=== PATIENT | female | born 1970 | race Caucasian/White ===

== ENCOUNTER 2023-10-06 17:55 | Inpatient (IN) ==
--- OUTSIDE RECORDS SUMMARY | 2023-10-06 18:01 | External Medical Summary | Summary of Care ---
Author Name Unknown Organization [facility] Address [address] [address] Care Team Providers Care Cloud Subject Matter Expert Name Role Phone Emiliano Marks MD Primary Care Provider [phone] Reason for Visit * Reason Comments Surgical Followup S/P SBO 07/01/23. Wet to dry dressings. Encounter Details Date Type Department Care Team (Late st Contact Info) Description 08/14/2023 2:20 PM EST Office Visit [facility] [address] [phone] Nirmala Olmos PA-C [address] [id number] Small bowel obstruction (HCC) (Primary Dx); S/P exploratory laparotomy Allergies Active Allergy Reactions Criticality Noted Date Comments Amoxicillin Swelling 04/27/2008 Throat swells/hives Codeine Hives 01/13/2013 Subsys Other 09/01/2017 Makes her feel like she is going nuts Penicillins 11/15/2007 Tylenol Unknown Reaction 11/24/2019 Cause liver count to elevate documented as of this encounter (statuses as of 08/14/2023) Medications Medication Sig Dispensed Refills Start Date End Date Status aspirin (ECOTRIN) 81 MG Oral Tab EC Take 81 mg by mouth DAILY. Active esomeprazole magnesium (NEXIUM) 40 MG Oral CAPSULE DELAYED RELEASE Take 40 mg by mouth DAILY. 90 Cap 3 12/13/2017 Active Additional Information Patient taking differently:40 mg OralBID, Reported on 07/21/2019 albuterol HFA (VENTOLIN) 108 (90 Base) MCG/ACT Inhalation Aero Soln Take 2 Puffs by inhalation EVERY FOUR HOURS NEEDED (prn). 3 Inhaler 3 02/04/2018 Active atorvastatin (LIPITOR) 40 MG Oral Tab Take 1 Tab by mouth DAILY. 30 Tab 3 05/20/2018 Active Tiotropium [place] Monohydrate (SPIRIVA RESPIMAT) 2.5 MCG/ACT Inhalation Aero Soln Take 2 Puffs by inhalation DAILY. 1 Inhaler 5 07/22/2018 Active levothyroxine (SYNTHROID) 125 MCG Oral Tab Take 1 Tab by mouth BEFORE BREAKFAST. 30 Tab 12 09/09/2018 Active Budesonide-Formote rol Fumarate (SYMBICORT IN) Take by inhalation. Active cholestyramine (QUESTRAN) 4 g Oral Pack Take 4 g by mouth TWICE DAILY. 02/16/2019 Active loperamide (IMODIUM) 2 MG Oral Cap Take 2 Caps by mouth THREE TIMES DAILY. 180 Cap 09/11/2019 Active levothyroxine (SYNTHROID) 137 MCG Oral Tab Take 137 mcg by mouth BEFORE BREAKFAST. Take on opposite days of the 125mcg Active naproxen (NAPROSYN) 500 MG Oral Tab Take 1 Tab by mouth TWICE DAILY. 180 Tab 3 11/10/2019 Active metoprolol succinate (TOPROL XL) 50 MG Oral TABLET SR 24 HR Take 1 Tab by mouth DAILY. 90 Tab 3 11/10/2019 Active ALPRAZolam (XANAX) 1 MG Oral Tab TAKE 1 TABLET BY MOUTH ONCE DAILY NEEDED FOR ANXIETY 30 Tab 12/22/2019 Active lidocaine Urethral/Mucosal (GLYDO) 2 % Apply externally Prefilled Syringe Apply a thin layer into wound during dressing changes 30 mL 07/10/2023 Active tramadol (ULTRAM) 50 MG Oral Tab Take 1 Tablet by mouth EVERY SIX HOURS NEEDED (wound vac changes). Max Daily Amount: 200 mg. 8 Tablet 07/22/2023 Active oxyCODONE (OXY-IR,OXY-FAST) 5 MG Oral Tab Take 1 Tablet by mouth EVERY SIX HOURS NEEDED (pain not controlled with other meds) for up to 10 doses. Max Daily Amount: 20 mg. 10 Tablet 07/22/2023 Active gabapentin (NEURONTIN) 100 MG Oral Cap Take 1 Capsule by mouth THREE TIMES DAILY. 90 Each 07/31/2023 Active methocarbamol (ROBAXIN) 500 MG Oral Tab Take 1 Tablet by mouth FOUR TIMES DAILY. 60 Tablet 07/31/2023 Active Gauze Pads & Dressings (GAUZE DRESSING) 4"X4" Does not apply Pads 1 Application TWICE DAILY. For wet to dry dressing change 48 Each 1 07/31/2023 Active Sodium Chloride (NORMAL SALINE) 0.9 % Injection Solution 20 mL by Topical route TWICE DAILY. For Wet to dry dressing changes 1000 mL 07/31/2023 Active Adhesive Tape (CLOTH ADHESIVE SURG 2"X10YD) Does not apply Tape 1 Application TWICE DAILY. For wet to dry dressing 2 Each 1 07/31/2023 Active Gauze Pads & Dressings (ABDOMINAL PAD) 8"X10" Does not apply Pads 1 Application TWICE DAILY. For wet to dry dressing 60 Each 1 07/31/2023 Active doxycycline (VIBRAMYCIN) 100 MG Oral Tab Take 1 Tablet by mouth TWICE DAILY for 10 days. 20 Tablet 08/08/2023 08/18/2023 Active documented as of this encounter (statuses as of 08/14/2023) Active Problems Problem Noted Date Diagnosed Date S/P exploratory laparotomy 07/08/2023 Acute hypoxic respiratory failure 07/08/2023 Ventral hernia without obstruction or gangrene 0 11/10/2019 Regular astigmatism of right eye 02/19/2019 Mixed hyperlipidemia 07/22/2018 Generalized abdominal pain 03/08/2018 H/O ischemic bowel disease 10/22/2017 Overview: Ischemic Bowel 2012 (hypercoagulable state) with laparotomy/ileostomy at [facility] 11/2012. Attempted reversal in [place] 04/12 that failed - ileostomy recreated. Cervical disc disease 10/22/2017 Overview: C5,6,7 on MRI in [place] 2010 Chronic bilateral low back pain without sciatica 10/22/2017 Small bowel obstruction 09/11/2017 Reactive depression 09/04/2017 Essential hypertension 09/04/2017 CAD (coronary artery disease) 09/04/2017 Moderate persistent asthma 09/04/2017 Presence of drug coated stent in right coronary artery 07/02/2012 Overview: Promus stent mid RCA 2012 Other and unspecified ovarian cyst 04/30/2008 Hypothyroidism 11/15/2007 Overview: S/P DURÁN for hyperthyroidism documented as of this encounter (statuses as of 08/14/2023) Resolved Problems Problem Noted Date Diagnosed Date Resolved Date Open abdominal wall wound 10/30/2018 Surgical wound, non healing 10/30/2018 01/20/2019 LFT elevation 12/24/2017 11/10/2019 Ileostomy prolapse 11/15/2017 0 Parastomal hernia without ob struction or gangrene 09/18/2017 07/21/2019 Overview: Multiple adhesions and SBO in the past. 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 Alcohol Use Standard Drinks/Week Comments No 0 (1 standard drink = 0.6 oz pur e alcohol) Food Insecurity Answer Date Recorded I want help getting food for myself/my family or applying for assistance. No 06/30/2023 Transportation Needs Answer Date Record ed In the last 6 months, I or m y child had to go without health care because we didn't have a way to get there. No 2022 Inadequate Housing Answer Date Recorded I worry my home is unhealthy or I might become h omeless. No 06/30/2023 Utilities Answer Date Recorded I have received a disconnect ion notice, or have trouble paying my utility bills (gas, electric, phone) No 06/30/2023 Sex and Gender Information Value Date Recorded Sex Assigned at Not on file Gender Identity Not on file Sexual Orientation Not on file COVID-19 Exposure Response Date Recorded In the last 10 days, have wilda u been in contact with someone who was confirmed or suspected to have Coronavirus/COVID-19? No / Unsure 08/14/2023 1:52 PM EST documented as of this encounter Last Filed Vital Signs Vital Sign Reading Time Taken Comments Blood Pressure 142/84 08/14/2023 2:10 PM EST Pulse 115 08/14/2023 2:10 PM EST Temperature 36.9 C (98.4 F) 08/14/2023 2:10 PM ES T Respiratory Rate 18 08/14/2023 2:10 PM EST Oxygen Saturation 98% 08/14/2023 2:10 PM EST Inhaled Oxygen Concentration - - Weight - - Height - - Body Mass Index - - documented in this encounter Patient Instructions * Patient Instructions* Nirmala Olmos PA-C - 08/14/2023 3:00 PM EST Continue good nutrition and hydration for healing. Continue the methocarbamol (robaxin) as needed. You can stop the neurontin (gabapentin), as it has not been helping and made you feel tired. Medihoney dressing once daily until fully healed. Follow up as needed. Call with questions or concerns. Trauma/General Surgery Clinic: [phone] documented in this encounter Progress Notes * Nirmala Olmos PA-C - 08/14/2023 3:00 PM EST Images from the original note were not included. PATIENT: Vonda Cherry : 1970 DATE OF SERVICE: 08/14/23 REFERRING PRACTITIONER: Huy PRIMARY CARE PROVIDER: Emiliano Marks Admission date: 06/30/2023 Discharge date: 07/09/2023 Admitting Physician: Radha Patino MD Indication for Admission: Small bowel obstruction (HCC) Principal Diagnosis: Small bowel obstruction (HCC) Other medical problems managed in the hospital: Medical Problems Hospital Problem list Noted Hypothyroidism 11/15/2007 Reactive depression 09/04/2017 Presence of drug coated stent in right coronary artery 07/02/2012 Essential hypertension 09/04/2017 CAD (coronary artery disease) 09/04/2017 Moderate persistent asthma 09/04/2017 * (Principal) Small bowel obstruction (HCC) 09/11/2017 H/O ischemic bowel disease 10/22/2017 Mixed hyperlipidemia 07/22/2018 S/P exploratory laparotomy 07/08/2023 Acute hypoxic respiratory failure (HCC) 07/08/2023 Non-Hospital Problem list Noted Other and unspecified ovarian cyst 04/30/2008 Cervical disc disease 10/22/2017 Chronic bilateral low back pain without sciatica 10/22/2017 Generalized abdominal pain 03/08/2018 Regular astigmatism of right eye 02/19/2019 Ventral hernia without obstruction or gangrene 11/10/2019 Discharged Condition: good Discharge Location: Home with Subjective HISTORY OF PRESENT ILLNESS: Vonda Cherry returns today for follow up of exploratory laparotomy with extensive lysis of adhesions and AbThera placement on 07/01/23 for SBO in the setting of previous subtotal colectomy, ileostomy, and ileostomy takedown and ileorectal anastamosis likely secondary to stricture at ileorectal anastomosis. She returned to the OR on 07/04/23 for abdominal washout and primary fascial closure. She wasextubated and NGT was removed and patient eventually tolerated an oral diet. She was recommended STR, but preferred home discharge with for wound vac care, which was removed for this appointment today. She reports that she continues to have sharp pains occasionally across the sides of the abdomen and up from the pelvis that are somewhat random. Pain gradually improving overall. No improvement with gabapentin - made her "loopy" and groggy. At this time, patient denies N/V/D, CP, SOB, Difficulty breathing or other complications. Patient having normal GI/ functioning. Patient tolerating regular PO intake. Patient not using pain medication currently. Patient denies any redness, irritation or drainage from wounds. The patient is doing well and is currently having no pain or problems. Objective PHYSICAL EXAMINATION: BP 142/84 Pulse 115 Temp 98.4 F (36.9 C) Resp 18 SpO2 98% Constitutional - AAOx3 Cardiac - RRR Respiratory - no acute distress Abdominal - Soft, tenderness around incision, nondistended. Wet to dry dressing removed. No area ofsignificant tunneling. Wound nearly to skin level. Medihoney and dry dressing placed. 2 areas wherehealing inhibited by retention suture extruding from wound - these were clipped superficially. On physical exam, the incision is healing well, free of signs and symptoms of infection. There is no induration and bruising. There are not any sign(s) of infection. IMPRESSION: ICD-10-CM 1. Small bowel obstruction (HCC) K56.609 2. S/P exploratory laparotomy Z98.890 No orders of the defined types were placed in this encounter. Plan PLAN: I have reviewed the provider's instructions with the patient, answering all questions to his/her satisfaction. Patient Instructions Continue good nutrition and hydration for healing. Continue the methocarbamol (robaxin) as needed. You can stop the neurontin (gabapentin), as it has not been helping and made you feel tired. Medihoney dressing once daily until fully healed. Follow up as needed. Call with questions or concerns. Trauma/General Surgery Clinic: [phone] Author: Nirmala Olmos PA-C 08/14/23 17:00 documented in this encounter Plan of Treatment Health Maintenance Due Date Last Done Comments CT Colonography 1970 Cologuard 1970 FIT/FOBT 1970 MEDICARE ANNUAL WELLNESS VISIT 1970 SDOH SCREENING 1970 PNEUMOCOCCAL 0-64 YRS (2 of 2 - PCV) 10/22/2018 10/22/2017 ZOSTER IMMUNIZATION SERIES (1 of 2) 02/24/2020 MAMMOGRAM (SCREENING) 03/13/2020 03/13/2019 , 03/04/2018, 12/06/2017, Additional history exists LIPID DISORDER Diagnostic 03/18/20202018, 06/26/2018, 02/18/2018, Additional history exists INFLUENZA VACCINE (#1) 2023 09/09/2018, 2017 eGFR (BMP/CMP) 07/07/2024 07/07/2023, 11/2023, 07/05/2023, Additional history exists Colonoscopy 09/07/2027 09/06/2017, 03/2018, 05/20/2008 DTaP/Tdap/Td Vaccines (2 - Tdap) 11/09/2029 11/10/2019 Colorectal Cancer Screening 07/03/2033 Sigmoidoscopy 07/03/2033 07/03/2023, 11/29, 04/09/2018 HIV SCREENING Completed 11/14/2017 HEPATITIS A IMMUNIZATION SERIES Aged Out No longer eligible based on patient's age to complete this topic HPV IMMUNIZATION SERIES Aged Out No l onger eligible based on patient's age to complete this topic MENINGOCOCCAL VACCINE IMM Aged Out No longer eligible based on patient's age to complete this topic RSV IMMUNIZATION <20 MONTHS Aged Out No longer eligible based on patient's age to complete this topic documented as of this encounter Goals Goal Patient Goal Type Associated Problems Recent Progress Patient-Stated? Author Blood Pressure < 140/90 Blood Pressure 142/84(08/14 2:10 PM EST) No Emiliano Marks MD Note: This is an individualized treatment (blood pressure) goal for Vonda Cherry: Displayed above (on the left) is your goal for blood pressure control. Your most recent blood pressure is also shown above, on the right. You should try to achieve blood pressures that are lower than your goal listed above (on the left). Depression screen (PHQ-9) total score < 5 Depression 12( 9 1:33 PM EDT) No Emiliano Marks MD Note: This is an individualized treatment (depression) goal for Vonda Cherry: Displayed above is your goal for a depression screening (PHQ-9) score that would indicate good control of your depression. Work with your Shop Director General No Emiliano Marks MD Note: This is an individualized treatment (frequent ED use) goal for Vonda Cherry: Please work with your Shop Director, who will assist you in meeting your goals of care. Weight loss vs. 18 mo max (lbs) >= 10 Lifestyle 0(07/01/2023 9:13 AM EST) Emiliano Cortes MD Note: This is an individualized lifestyle goal for Vonda Cherry: Your body mass index (BMI) is more than 30. You should lose weight. A reasonable starting goal is to lose 10 pounds. Displayed above is how many pounds you have lost thus far towards your 10 pound weight loss goal. Keep a regular sleep schedule Emiliano Dan MD Note: This is an individualized lifestyle goal for Vonda Cherry: Please maintain a regular sleep schedule. This may help with some symptoms of depression. Regular appointments with primary care provider (PCP) Emiliano Dan MD Note: This is an individualized lifestyle goal for Vonda Cherry: Please schedule regular visits with your primary care provider (PCP). Care provided in your PCP's office can help reduce your need for additional trips to the Emergency Room. Take all prescribed medications as directed Self-managemen t Emiliano Cortes MD Note: This is an individualized self-management goal for Vonda Cherry: Please take all prescribed medications as directed. 1. Do not skip doses. If you cannot afford your medications, talk with your doctor. 2. Use a pill reminder system such as a pill box if needed. Your pharmacist can help you with this. 3. Contact your Pharmacy 5 days before your medication runs out. If you cannot take your medications for any reasons, talk with your doctor. 4. Please bring all of your medication bottles and inhalers (or a list of all your medications/inhalers) with you to every visit. Potential barriers to meeting all of your care plan goals will continue to be addressed on an ongoing basis. documented as of this encounter Medical Devices Implanted Type Area Physical Therapy Asst Device Identifier Shelf Expiration Date Model / Serial / Lot Taxus-07/02/2012 Implanted: [id number] (Quantity not on file) [employer] Description:MRI CONDITIONAL 1.5 or 3.0T 2.0 W/KG 700G/CM <16T/CM documented as of this encounter Visit Diagnoses Diagnosis Small bowel obstruction (HCC)- Primary Unspecified intestinal obstruction S/P exploratory laparotomy Other postprocedural status documented in this encounter Advance Directives Latest Code Status on File Code Status Date Activated Date Inactivated Comments Full Code 07/01/2023 1:05 AM Question Answer Comments Does the patient have decisi on making capacity? Yes Order was discussed with: Patient I discussed all options and patient/surrogate requested and agreed to: Full Code Code Status History Code Status Date Activated Date Inactivated Comments Full Code 10/27/2017 7:25 PM 10/30/2017 7:38 PM Does p atient have decision making capacity? yes Order discussed with: Patient I discussed all options and patient/surrogate requested and agreed to: Full Code Care Teams Cloud Subject Matter Expert Relationship Specialty Start Date End Date Emiliano Marks MD [address] [id number] PCP - General FAMILY PRACTICE 10/22/17 documented as of this encounter
--- OUTSIDE RECORDS SUMMARY | 2023-10-06 18:01 | External Medical Summary | Summary of Care ---
Author Name Unknown Organization [facility] Address [address] [address] Care Team Providers Care Spice Mixer Name Role Phone Emiliano Marks MD Primary Care Provider [phone] Reason for Visit * Reason Comments Surgical Followup .10.22 re-look lapar otomy, abdominal washout, fascial closure Encounter Details Date Type Department Care Team (Late st Contact Info) Description 07/31/2023 3:00 PM EST Office Visit [facility] [address] [phone] Nirmala Olmos PAAdama [address] [id number] Small bowel obstruction (HCC) (Primary Dx); S/P exploratory laparotomy Allergies Active Allergy Reactions Criticality Noted Date Comments Amoxicillin Swelling 04/27/2008 Throat swells/hives Codeine Hives 01/13/2013 Subsys Other 09/01/2017 Makes her feel like she is going nuts Penicillins 11/15/2007 Tylenol Unknown Reaction 11/24/2019 Cause liver count to elevate documented as of this encounter (statuses as of 07/31/2023) Medications Medication Sig Dispensed Refills Start Date [...] DAILY. 30 Tab 3 05/20/2018 Active Tiotropium [place] Monohydrate (SPIRIVA RESPIMAT) 2.5 MCG/ACT Inhalation Aero [...] NEEDED FOR ANXIETY 30 Tab 12/22/2019 Active losartan (COZAAR) 50 MG Oral Tab Take 1 Tablet by mouth DAILY for 30 days. 30 Each 07/10/2023 08/09/2023 Active lidocaine Urethral/Mucosal (GLYDO) 2 % Apply [...] dry dressing 60 Each 1 07/31/2023 Active documented as of this encounter (statuses as of 07/31/2023) Active Problems Problem Noted Date Diagnosed Date S/P exploratory laparotomy 07/08/2023 Acute hypoxic respiratory failure 07/08/2023 Ventral hernia without obstruction or gangrene 0 11/10/2019 Regular astigmatism of right eye 02/19/2019 Mixed hyperlipidemia 07/22/2018 Generalized abdominal pain 03/08/2018 H/O ischemic bowel disease 10/22/2017 Overview: Ischemic Bowel 2012 (hypercoagulable state) with laparotomy/ileostomy at [facility] 11/2012. Attempted reversal in [place] 04/12 that failed - ileostomy recreated. Cervical disc disease 10/22/2017 Overview: C5,6,7 on MRI in [place] 2010 Chronic bilateral low back pain without [...] as of this encounter (statuses as of 07/31/2023) Resolved Problems Problem Noted Date Diagnosed Date Resolved Date Open abdominal wall wound 10/30/2018 Surgical wound, non healing 10/30/2018 01/20/2019 LFT elevation 12/24/2017 11/10/2019 Ileostomy prolapse 11/15/2017 0 Parastomal hernia without ob struction or gangrene 09/18/2017 07/21/2019 Overview: Multiple adhesions and SBO in the past. Dr. Norton recommends continued ostomy care home current use of ant icoagulant therapy 09/17/2017 09/09/2018 Overview: Warfarin therapy was d/c upon discharge from [facility], 08/2018. 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 Alcohol Use Standard Drinks/Week Comments No 0 [...] In the last 10 days, have wilda torres been in contact with someone who was confirmed or suspected to have Coronavirus/COVID-19? No / Unsure 07/31/2023 2:49 PM EST documented as of this encounter Last Filed Vital Signs Vital Sign Reading Time Taken Comments Blood Pressure - - Pulse 116 07/31/2023 2:59 PM EST Temperature 36.5 C (97.7 F) 07/31/2023 2:59 PM ES T Respiratory Rate - - Oxygen Saturation 93% 07/31/2023 2:59 PM EST Inhaled Oxygen Concentration - - Weight - - Height - - Body Mass Index - - documented in this encounter Patient Instructions * Patient Instructions* Nirmala Olmos PA-C - 07/31/2023 3:00 PM EST Continue with lifting restriction - no more than 10 - 15 pounds for a total of 6 weeks, then gradually progress to normal. Continue good nutrition and hydration for healing. Take the methocarbamol (robaxin) muscle relaxer 3- 4 times per day consistently. This dose can be increased if necessary. Start on neurontin (gabapentin) three times daily 100mg capsule. Continue wet to dry dressings twice daily. I will send supplies to the pharmacy. Follow up in 2 weeks. Call with questions or concerns. Trauma/[facility] Surgery Clinic: [phone] documented in this encounter Progress Notes * Nirmala Olmos PA-C - 07/31/2023 3:00 PM EST PATIENT: Vonda Cherry : 1970 DATE OF SERVICE: 07/31/23 REFERRING PRACTITIONER: Huy PRIMARY CARE PROVIDER: Emiliano [...] of the abdomen and up from the pelvis, worse with movement. She has been taking advil, muscle relaxer (robaxin) only at bedtime and she took her last oxycodone just prior to coming today. Reports burning pain around the wound as well. At this time, patient denies N/V/D, CP, SOB, Difficulty breathing or other complications. Patient having normal GI/ functioning. Patient tolerating regular PO intake. Patient not using pain medication currently. Patient denies any redness, irritation or drainage from wounds. The patient is doing well and is currently having no pain or problems. Objective PHYSICAL EXAMINATION: Pulse 116 Temp 97.7 F (36.5 C) SpO2 93% Constitutional - AAOx3 Cardiac - RRR Respiratory - no acute distress Abdominal - Soft, tenderness around incision, nondistended. Wet to dry dressing removed. No area ofsignificant tunneling. Wound nearly to skin level. Wet to dry dressing replaced. On physical exam, the incision is healing well, free of signs and symptoms of infection. There is no induration and bruising. There are not any sign(s) of infection. No scans are attached to the encounter. IMPRESSION: ICD-10-CM 1. Small bowel obstruction (HCC) K56.609 2. S/P exploratory laparotomy Z98.890 Orders Placed This Encounter gabapentin (NEURONTIN) 100 MG Oral Cap methocarbamol (ROBAXIN) 500 MG Oral Tab Gauze Pads & Dressings (GAUZE DRESSING) 4"X4" Does not apply Pads Sodium Chloride (NORMAL SALINE) 0.9 % Injection Solution Adhesive Tape (CLOTH ADHESIVE SURG 2"X10YD) Does not apply Tape Gauze Pads & Dressings (ABDOMINAL PAD) 8"X10" Does not apply Pads Plan PLAN: I have reviewed the provider's instructions with the patient, answering all questions to his/her satisfaction. Patient Instructions Continue with lifting restriction - no more than 10 - 15 pounds for a total of 6 weeks, then gradually progress to normal. Continue good nutrition and hydration for healing. Take the methocarbamol (robaxin) muscle relaxer 3- 4 times per day consistently. This dose can be increased if necessary. Start on neurontin (gabapentin) three times daily 100mg capsule. Continue wet to dry dressings twice daily. I will send supplies to the pharmacy. Follow up in 2 weeks. Call with questions or concerns. Trauma/General Surgery Clinic: [phone] Author: Nirmala Olmos PA-C 07/31/23 17:16 documented in this encounter Plan of Treatment Upcoming Encounters Date Type Department Care Team (Late st Contact Info) Description 08/14/2023 3:00 PM EST Office Visit [facility] [address] [place] [address] [address] [phone] Health Maintenance Due Date Last Done Comments [...] Author Blood Pressure < 140/90 Blood Pressure 152/87(07/09 3:45 PM EST) No Emiliano Marks MD Note: [...] 5 Depression 12( 9 1:33 PM EDT) mEiliano Cortes MD Note: This is an individualized treatment (depression) goal for Vonda Cherry: Displayed above is your goal for a depression screening (PHQ-9) score that would indicate good control of your depression. Work with your Inside Barrel Polisher General Emiliano Cortes MD Note: This is an individualized treatment (frequent ED use) goal for Vonda Cherry: Please work with your Inside Barrel Polisher, who will assist you in meeting your [...] this encounter Medical Devices Implanted Type Area Dimensional Inspector Device Identifier Shelf Expiration Date Model / Serial / Lot [employer]-07/02/2012 Implanted: [id number] (Quantity not on file) Fly Media Description:MRI CONDITIONAL 1.5 or 3.0T 2.0 W/KG [...] and agreed to: Full Code Care Teams Spice Mixer Relationship Specialty Start Date End Date Emiliano Marks MD [address] [id number] PCP - General FAMILY PRACTICE 10/22/17 documented as of this encounter
--- NOTE | 2023-10-06 18:13 | Emergency Department Note ---
Impression & Plan Post-operative pain, Abscess of liver, Abdominal pain ED Provider Note NAME: ALICIA CH AGE: 53 SEX: F : 1970 ARRIVES VIA: Walk-In INFORMANT: Patient, ED PROVIDER(S): Fran Leo DO CHIEF COMPLAINT: Abdominal pain HPI: The patient is a 53-year-old female who has a history of abdominal surgery because of a bowel obstruction at the beginning of the year. She had surgery at a hospital in [place], [place]. The patient states that she is been trying to call the surgeon over the course the last few weeks she has been noticing abdominal pain which has been worsening over the course the last few weeks. She called the surgeon multiple times. She was told to continue to monitor her symptoms but ultimately was told to come to the emergency department for further evaluation as well as a workup. The patient denies having any fever. The patient denies having any leg swelling or pain. She denies having any chest pain or difficulty breathing. ROS: See above HPI for pertinent positives & negatives. A total of 10 systems reviewed and were otherwise negative. PAST MEDICAL HISTORY: See Below PAST SURGICAL HISTORY: See Below FAMILY HISTORY: See Below SOCIAL HISTORY: See Below HOME MEDICATIONS: See Below ALLERGIES: See Below VITALS: See Below PHYSICAL EXAMINATION: GENERAL: The patient is awake and alert. She is very anxious and appears to be uncomfortable. EYES: The conjunctivae are clear. The pupils are round and reactive. EARS, NOSE, MOUTH AND THROAT: The nose is without any evidence of any deformity. NECK: The neck is nontender and supple. RESPIRATORY: Normal respiratory effort is noted there is no evidence of wheezing rhonchi or rales CARDIOVASCULAR: Regular rate and rhythm noted there no murmurs rubs or gallops normal S1 normal S2. GASTROINTESTINAL: The abdomen is distended and diffusely tender. There is diffuse guarding. MUSCULOSKELETAL/EXTREMITIES: There is no evidence of gross deformity full range of motion is noted in the hips and shoulders. SKIN: There is no obvious evidence of any rash. There are no petechiae, pallor or cyanosis noted. NEUROLOGIC: Patient is awake alert and oriented x3 MEDICAL DECISION MAKING: The patient is a 53-year-old female who presented to the emergency department for an evaluation of abdominal pain. The patient started having abdominal pain over the course the last few weeks. She is 4 months status post lysis of adhesions for bowel obstruction. I discussed patient's laboratory and radiographic studies with her. She was in significant pain and was treated with pain medication in the emergency department. On reevaluation she was somewhat improved. Given her CT report she was started on empiric IV antibiotics. I discussed her condition with the on-call [facility] surgeon as well as the on-call [facility] hospitalist. The patient was felt to be a good candidate for medical management at this time. She was feeling much better on reevaluation. Laboratory studies were reassuring. Triage Nursing notes reviewed. Prior medical records reviewed Vital Signs: reviewed and remarkable for no significant abnormalities Differential diagnosis: Differential diagnosis in this patient could include bowel obstruction, bleeding, postoperative infection, injury to adjacent structures, and other differential diagnoses were considered. ER treatment provided: See below Diagnostics interpreted by me: ECG: none Cardiac Monitoring: An order was placed for continuous cardiac monitoring. The monitor shows a rate of 79 bpm with sinus rhythm. Laboratory studies: As stated above and show below. Imaging studies: See below. Radiographic imaging was reviewed by myself Consultation(s): I discussed this case with Dr. Tejeda who is on-call for general surgery. I discussed this case with Dr. Levi who is on-call for the [facility] hospitalist group. Past Med/Surg History Medical History Hypertension History of colon polyps History of renal failure Kidney cysts Liver cyst Crohn's disease ? - UNDETERMINED History of diverticulitis Acid reflux Degenerative disc disease, lumbar Bulging discs "SLIPPED DISCS C 5, 6 &7" - FULL ROM Depression Anxiety Arthritis History of thyroid disease "OVERACTIVE" 1995 - HX RADIATION History of blood clots 2012, PT HAD BLOOD CLOT FROM PT HEART DOWN TO BOWELS. MEDICALLY INDUCED COMA/[facility] History of COVID-19 PER PT - PROBABLE - HAD PHONE EVAL WITH PRACTITIONER - NO TEST FOR MAY 2020 COPD (chronic obstructive pulmonary disease) Asthma CONTROLLED History of anesthesia reaction WHEN WAKING UP - IF SOMETHING IS ON FACE WILL PULL AT IT - HX PULLING OUT TUBES Mini stroke 2012 WHILE IN MEDICALLY INDUCED COMA Acute myocardial infarction 2012 MILD VT WHILE IN MEDICALLY INDUCED COMA Tachycardia Surgical History H/O exploratory laparotomy 07/2023 @[facility] with lysis of adhesions. S/P scar revision (~10/18/20) abdominal scar revision with umbilicoplasty - Dr. Stewart History of endoscopy History of colonoscopy History of surgical procedure Pt states having 16 surgeries since 2012 due to a blood clot that dropped from pt's heart to bowels. SURGERIES INCLUDE ILEOSTOMY, ATTEMPTED REVERSAL, AND REVERSAL History of cholecystectomy History of hysterectomy History of removal of ovarian cyst History of appendectomy Stented coronary artery TACHYCARDIA...07/2012 stent placed in right artery of heart , ANGIOPLASTY 2 PLACES Family History Mother Breast cancer Grandmother (Paternal) Breast cancer Cancer breast cancer, unknown cancer, and brain cancer Grandmother (Maternal) Breast cancer Family history of diabetes mellitus Aunt Cancer Grandfather (Maternal) Myocardial infarction Denies family history of Ovarian cancer Prostate cancer Colorectal cancer Social History Smoking Status: Current every day smoker Tobacco Type: Cigarettes packs per day: 0.5; Do You Dip or Chew Tobacco: No; Hx Alcohol Use: No Hx Substance Use: No Preferred Language: Austrian Communication Ability: Effective Filling Operator Required: No Beliefs That Will Affect Care: None marital status: Single Current Living Situation: Alone current occupational status: disabled How many Children do You have: 3 Feels Safe at Home: Yes caffeine: Yes Dental Care, Regularly: Yes Physical Activity Frequency: Daily Physical Activity Frequency Comment: housewor and walking the dogs daily Seatbelt Use: always Sunscreen Use: Yes Assistive Devices: Denture - Upper and Denture - Lower Allergies Allergies Allergy/AdvReac Type Severity Reaction Status Date / Time amoxicillin Allergy Severe HIVES, Verified 10/06/23 19:42 THROAT SWELLS Penicillins Allergy Severe Hives, Verified 10/06/23 19:42 throat swells shit acetaminophen [From Tylenol] AdvReac Intermediate N/V, Verified 10/06/23 19:42 "MAKES MY LIVER COUNT GO UP" fentanyl AdvReac Intermediate WITH HIGH Verified 10/06/23 19:42 DOSES - Hallucinations codeine AdvReac Mild Nausea Verified 10/06/23 19:42 Home Meds Home Medications Medication Instructions Recorded Confirmed potassium gluconate 500 mg (83 mg) 0 mg PO DAILY 10/06/23 10/06/23 tablet Previous Rx's Medication Instructions Recorded albuterol sulfate 90 mcg/actuation 1 inh inhalation QID PRN ASTHMA, 05/08/23 aerosol inhaler (ProAir HFA) COPD #6.7 grams atorvastatin 40 mg tablet 40 mg PO QPM #90 tabs 05/08/23 budesonide-formoterol HFA 160 2 puff inhalation BID #3 Inhalers 05/08/23 mcg-4.5 mcg/actuation aerosol inhaler (Symbicort) escitalopram oxalate 10 mg tablet 10 mg PO DAILY #90 tabs 05/08/23 esomeprazole magnesium 40 mg 40 mg PO BID #180 caps 05/08/23 capsule,delayed release (Nexium) loperamide 2 mg capsule 2 mg PO Q6H PRN loose stool #270 05/08/23 caps metoprolol succinate 50 mg 50 mg PO QPM #90 tabs 05/08/23 tablet,extended release 24 hr nitroglycerin 0.4 mg sublingual 0.4 mg sublingual Q5M PRN chest 05/08/23 tablet pain #25 tabs tiotropium bromide 2.5 2 puff inhalation DAILY #3 Inhalers 05/08/23 mcg/actuation mist for inhalation (Spiriva Respimat) levothyroxine 150 mcg tablet 150 mcg PO DAILY #90 tabs 07/29/23 buspirone 15 mg tablet 15 mg PO Q6H PRN anxiety #90 tabs 08/22/23 Results & Data (ED) Vital Signs Vital Signs - 24 hr 10/06/23 17:56 10/06/23 18:27 10/06/23 18:28 Temperature 36.9 C Temperature Source Temporal Artery Scan Pulse Rate 95 H 80 Pulse Rate from SpO2 Sensor Respiratory Rate 18 19 Respiratory Effort / Characteristics Non-Labored Spontaneous Respiratory Depth Normal Respiratory Pattern Regular Blood Pressure 172/120 H 169/106 H Blood Pressure Mean 137 146 Blood Pressure Position Sitting Pulse Oximetry 100 Oxygen Delivery Method Room Air Sepsis Recent Fever Within 48 Hours No Sepsis New/Unexplained Change in Mental Status N/A Sepsis Action Taken by Nursing No Action Required 10/06/23 18:29 10/06/23 18:30 10/06/23 18:30 Temperature Temperature Source Pulse Rate 84 85 Pulse Rate from SpO2 Sensor Respiratory Rate 17 Respiratory Effort / Characteristics Respiratory Depth Respiratory Pattern Blood Pressure 166/105 H Blood Pressure Mean 122 Blood Pressure Position Pulse Oximetry Oxygen Delivery Method Sepsis Recent Fever Within 48 Hours Sepsis New/Unexplained Change in Mental Status Sepsis Action Taken by Nursing 10/06/23 18:38 10/06/23 18:38 10/06/23 18:40 Temperature Temperature Source Pulse Rate 80 78 Pulse Rate from SpO2 Sensor Respiratory Rate 18 18 Respiratory Effort / Characteristics Respiratory Depth Respiratory Pattern Blood Pressure 164/109 H Blood Pressure Mean 118 Blood Pressure Position Pulse Oximetry Oxygen Delivery Method Sepsis Recent Fever Within 48 Hours Sepsis New/Unexplained Change in Mental Status Sepsis Action Taken by Nursing 10/06/23 18:47 10/06/23 19:07 10/06/23 19:09 Temperature Temperature Source Pulse Rate 86 Pulse Rate from SpO2 Sensor 86 Respiratory Rate 21 Respiratory Effort / Characteristics Respiratory Depth Respiratory Pattern Blood Pressure 170/102 H Blood Pressure Mean 137 Blood Pressure Position Pulse Oximetry 95 Oxygen Delivery Method Room Air Sepsis Recent Fever Within 48 Hours Sepsis New/Unexplained Change in Mental Status Sepsis Action Taken by Nursing 10/06/23 19:09 10/06/23 19:10 10/06/23 19:20 Temperature Temperature Source Pulse Rate 87 85 85 Pulse Rate from SpO2 Sensor 87 85 85 Respiratory Rate 20 23 20 Respiratory Effort / Characteristics Respiratory Depth Respiratory Pattern Blood Pressure Blood Pressure Mean Blood Pressure Position Pulse Oximetry 96 97 97 Oxygen Delivery Method Sepsis Recent Fever Within 48 Hours Sepsis New/Unexplained Change in Mental Status Sepsis Action Taken by Nursing 10/06/23 19:30 10/06/23 19:30 10/06/23 19:40 Temperature Temperature Source Pulse Rate 83 86 Pulse Rate from SpO2 Sensor 83 86 Respiratory Rate 17 21 Respiratory Effort / Characteristics Respiratory Depth Respiratory Pattern Blood Pressure 131/93 Blood Pressure Mean 103 Blood Pressure Position Pulse Oximetry 96 96 Oxygen Delivery Method Sepsis Recent Fever Within 48 Hours Sepsis New/Unexplained Change in Mental Status Sepsis Action Taken by Nursing 10/06/23 19:50 10/06/23 20:00 10/06/23 20:00 Temperature Temperature Source Pulse Rate 82 81 Pulse Rate from SpO2 Sensor 83 81 Respiratory Rate 14 21 Respiratory Effort / Characteristics Respiratory Depth Respiratory Pattern Blood Pressure 143/84 H Blood Pressure Mean 110 Blood Pressure Position Pulse Oximetry 93 93 Oxygen Delivery Method Sepsis Recent Fever Within 48 Hours Sepsis New/Unexplained Change in Mental Status Sepsis Action Taken by Nursing 10/06/23 20:10 10/06/23 20:20 10/06/23 20:30 Temperature Temperature Source Pulse Rate 80 80 Pulse Rate from SpO2 Sensor 81 79 Respiratory Rate 19 20 Respiratory Effort / Characteristics Respiratory Depth Respiratory Pattern Blood Pressure 158/102 H Blood Pressure Mean 129 Blood Pressure Position Pulse Oximetry 94 94 Oxygen Delivery Method Sepsis Recent Fever Within 48 Hours Sepsis New/Unexplained Change in Mental Status Sepsis Action Taken by Nursing 10/06/23 20:30 10/06/23 20:40 10/06/23 20:53 Temperature Temperature Source Pulse Rate 84 80 82 Pulse Rate from SpO2 Sensor 84 80 81 Respiratory Rate 15 17 21 Respiratory Effort / Characteristics Respiratory Depth Respiratory Pattern Blood Pressure Blood Pressure Mean Blood Pressure Position Pulse Oximetry 95 96 96 Oxygen Delivery Method Sepsis Recent Fever Within 48 Hours Sepsis New/Unexplained Change in Mental Status Sepsis Action Taken by Nursing 10/06/23 21:00 10/06/23 21:00 10/06/23 21:10 Temperature Temperature Source Pulse Rate 81 82 Pulse Rate from SpO2 Sensor 82 83 Respiratory Rate 13 Respiratory Effort / Characteristics Respiratory Depth Respiratory Pattern Blood Pressure 168/108 H Blood Pressure Mean 131 Blood Pressure Position Pulse Oximetry 94 97 Oxygen Delivery Method Sepsis Recent Fever Within 48 Hours Sepsis New/Unexplained Change in Mental Status Sepsis Action Taken by Nursing 10/06/23 21:20 10/06/23 21:30 10/06/23 21:30 Temperature Temperature Source Pulse Rate 77 79 Pulse Rate from SpO2 Sensor 79 79 Respiratory Rate 16 13 Respiratory Effort / Characteristics Respiratory Depth Respiratory Pattern Blood Pressure 147/98 H Blood Pressure Mean 128 Blood Pressure Position Pulse Oximetry 96 94 Oxygen Delivery Method Sepsis Recent Fever Within 48 Hours Sepsis New/Unexplained Change in Mental Status Sepsis Action Taken by Nursing 10/06/23 21:40 10/06/23 21:50 10/06/23 22:00 Temperature Temperature Source Pulse Rate 75 87 Pulse Rate from SpO2 Sensor 73 77 Respiratory Rate 13 16 Respiratory Effort / Characteristics Respiratory Depth Respiratory Pattern Blood Pressure 136/90 Blood Pressure Mean 100 Blood Pressure Position Pulse Oximetry 95 96 Oxygen Delivery Method Sepsis Recent Fever Within 48 Hours Sepsis New/Unexplained Change in Mental Status Sepsis Action Taken by Nursing 10/06/23 22:00 Temperature Temperature Source Pulse Rate 79 Pulse Rate from SpO2 Sensor 80 Respiratory Rate 14 Respiratory Effort / Characteristics Respiratory Depth Respiratory Pattern Blood Pressure Blood Pressure Mean Blood Pressure Position Pulse Oximetry 95 Oxygen Delivery Method Sepsis Recent Fever Within 48 Hours Sepsis New/Unexplained Change in Mental Status Sepsis Action Taken by Residential Medications Current Medication List: was personally reviewed by or Laboratory Data Attestation: I reviewed the patient's lab results. 10/06/23 18:29 10/06/23 18:29 Lab Results 10/06/23 10/06/23 10/06/23 Range/Units 18:28 18:29 18:42 WBC 8.09 (4.8-10.8) K/ul RBC 4.51 (4.20-5.40) M/uL Hgb 10.5 L (12.0-16.0) g/dl POC Hgb 10.9 L (12.0-16.0) g/dl Hct 35.5 L (37.0-47.0) % POC Hct 32 L (37-47) % MCV 78.7 L (80.0-100.0) fL MCH 23.3 L (25.0-34.0) pg MCHC 29.6 L (32.0-36.0) g/dL RDW Std Deviation 50.3 H (36.4-46.3) fL RDW Coeff of Ismael 17.7 H (11.5-14.5) % Plt Count 368 (130-400) K/uL MPV 10.7 (9.4-12.4) fL Immature Gran % (Auto) 0.2 % Neut % (Auto) 61.4 % Lymph % (Auto) 28.1 % Mcmullen % (Auto) 5.8 % Eos % (Auto) 3.6 % Baso % (Auto) 0.9 % Neut # (Auto) 4.97 (1.40-6.50) K/uL Lymph # (Auto) 2.27 (1.20-3.40) K/uL Mcmullen # (Auto) 0.47 (0.11-0.59) K/uL Eos # (Auto) 0.29 (0.00-0.50) K/uL Baso # (Auto) 0.07 (0.00-0.20) K/uL Immature Gran # (Auto) 0.02 (0.01-0.20) K/uL POC Sodium 141 (135-144) mmol/L Sodium 139 (136-145) mmol/L POC Potassium 3.6 (3.3-5.0) mmol/L Potassium 3.6 (3.5-5.1) mmol/L POC Chloride 108 (101-112) mmol/L Chloride 109 H (98-107) mmol/L Carbon Dioxide 21 (21-32) mmol/L POC Total CO2 23 L (24-31) mmol/L Anion Gap 9 (3-11) POC Anion Gap 15.0 L (16-25) mmol/L POC BUN 15 (7-18) mg/dl BUN 16 (6-23) mg/dl Creatinine 0.61 (0.6-1.2) mg/dl POC Creatinine 0.6 (0.6-1.3) mg/dl Est Cr Clr Drug Dosing Not Reportable Est GFR ( Amer) 120.0 ml/min Est GFR (Non-Af Amer) 103.5 ml/min BUN/Creatinine Ratio 26.2 H (10-20) Glucose 91 (70-99(Fasting)) mg/dl POC Glucose (other) 89 (70-99) mg/dl Calcium 8.9 (8.6-10.3) mg/dl POC Ioniz Calcium Chun 1.27 (1.12-1.32) mmol/l Total Bilirubin 0.3 (0.2-1.0) mg/dl AST 13 (13-39) U/L ALT 10 (7-52) U/L Alkaline Phosphatase 82 (34-104) U/L C-Reactive Protein < 0.50 (0-0.5) mg/dl Total Protein 6.5 (6.0-8.3) gm/dl Albumin 3.8 (3.4-5.0) gm/dl Globulin 2.7 (2.5-4.0) gm/dl Albumin/Globulin Ratio 1.4 (0.9-2) Lipase 19 (11-82) U/L Procalcitonin < 0.02 (0-0.5) ng/ml Urine Color Urine Appearance (Clear) Urine pH (4.5-7.5) Ur Specific [place] (1.000-1.030) Urine Protein (Negative) Urine Glucose (UA) (Negative) Urine Ketones (Negative) Urine Blood (Negative) Urine Nitrite (Negative) Urine Bilirubin (Negative) Urine Urobilinogen (Negative) Ur Leukocyte Esterase (Negative) 10/06/23 Range/Units 20:59 WBC (4.8-10.8) K/ul RBC (4.20-5.40) M/uL Hgb (12.0-16.0) g/dl POC Hgb (12.0-16.0) g/dl Hct (37.0-47.0) % POC Hct (37-47) % MCV (80.0-100.0) fL MCH (25.0-34.0) pg MCHC (32.0-36.0) g/dL RDW Std Deviation (36.4-46.3) fL RDW Coeff of Ismael (11.5-14.5) % Plt Count (130-400) K/uL MPV (9.4-12.4) fL Immature Gran % (Auto) % Neut % (Auto) % Lymph % (Auto) % Mcmullen % (Auto) % Eos % (Auto) % Baso % (Auto) % Neut # (Auto) (1.40-6.50) K/uL Lymph # (Auto) (1.20-3.40) K/uL Mcmullen # (Auto) (0.11-0.59) K/uL Eos # (Auto) (0.00-0.50) K/uL Baso # (Auto) (0.00-0.20) K/uL Immature Gran # (Auto) (0.01-0.20) K/uL POC Sodium (135-144) mmol/L Sodium (136-145) mmol/L POC Potassium (3.3-5.0) mmol/L Potassium (3.5-5.1) mmol/L POC Chloride (101-112) mmol/L Chloride (98-107) mmol/L Carbon Dioxide (21-32) mmol/L POC Total CO2 (24-31) mmol/L Anion Gap (3-11) POC Anion Gap (16-25) mmol/L POC BUN (7-18) mg/dl BUN (6-23) mg/dl Creatinine (0.6-1.2) mg/dl POC Creatinine (0.6-1.3) mg/dl Est Cr Clr Drug Dosing Est GFR ( Amer) ml/min Est GFR (Non-Af Amer) ml/min BUN/Creatinine Ratio (10-20) Glucose (70-99(Fasting)) mg/dl POC Glucose (other) (70-99) mg/dl Calcium (8.6-10.3) mg/dl POC Ioniz Calcium Chun (1.12-1.32) mmol/l Total Bilirubin (0.2-1.0) mg/dl AST (13-39) U/L ALT (7-52) U/L Alkaline Phosphatase (34-104) U/L C-Reactive Protein (0-0.5) mg/dl Total Protein (6.0-8.3) gm/dl Albumin (3.4-5.0) gm/dl Globulin (2.5-4.0) gm/dl Albumin/Globulin Ratio (0.9-2) Lipase (11-82) U/L Procalcitonin (0-0.5) ng/ml Urine Color Yellow Urine Appearance Clear (Clear) Urine pH 5.5 (4.5-7.5) Ur Specific [place] > 1.045 H (1.000-1.030) Urine Protein Negative (Negative) Urine Glucose (UA) Negative (Negative) Urine Ketones Negative (Negative) Urine Blood Negative (Negative) Urine Nitrite Negative (Negative) Urine Bilirubin Negative (Negative) Urine Urobilinogen Negative (Negative) Ur Leukocyte Esterase Negative (Negative) Administered Medications Hydromorphone HCl (Hydromorphone Inj 0.5 Mg/0.5 Ml Syr) 0.5 mg IV Q15M PRN PRN Reason: Pain Stop: 10/20/23 18:07 Last Admin: 10/06/23 20:41 Dose: 0.5 mg Documented By: Admin: 10/06/23 19:24 Dose: 0.5 mg Documented By: Admin: 10/06/23 18:21 Dose: 0.5 mg Documented By: LAURA Vancomycin HCl 2,000 mg/ (Sodium Chloride) 540 mls @ 200 mls/hr IV NOW ONE Stop: 10/06/23 22:36 Last Admin: 10/06/23 21:34 Dose: 200 mls/hr Documented By: LAURA Discontinued Medications Sodium Chloride (Nss) 1,000 mls @ 999 mls/hr IV .Q1H1M STA Stop: 10/06/23 19:08 Last Infusion: 10/06/23 19:36 Dose: Infused Documented By: Admin: 10/06/23 18:21 Dose: 999 mls/hr Documented By: LAURA Ceftriaxone Sodium (Rocephin) 2,000 mg in 50 mls @ 100 mls/hr IV NOW STA Stop: 10/06/23 20:36 Last Infusion: 10/06/23 21:25 Dose: Infused Documented By: Admin: 10/06/23 20:42 Dose: 100 mls/hr Documented By: LAURA Metronidazole (Flagyl) 500 mg in 100 mls @ 100 mls/hr IV NOW STA; Protocol Stop: 10/06/23 21:07 Last Infusion: 10/06/23 21:53 Dose: Infused Documented By: Admin: 10/06/23 20:42 Dose: 100 mls/hr Documented By: LAURA Ioversol (Optiray 320 100ml) 92 ml IV ONCE ONE Stop: 10/06/23 19:04 Last Admin: 10/06/23 19:03 Dose: 92 ml Documented By: SMITHA Ondansetron HCl (Ondansetron Inj 2 Mg/Ml 2 Ml Vial) 4 mg IV NOW STA Stop: 10/06/23 18:09 Last Admin: 10/06/23 18:21 Dose: 4 mg Documented By: LAURA Imaging Data Attestation: I personally reviewed and interpreted this imaging study as follows: My Impression: CT of the abdomen and pelvis was obtained in the emergency department. My interpretation is no free air or definite bowel obstruction, final report below. Radiologist's Impression: Abdomen/Pelvis CT 10/06/23 18:08 CT abd pelvis IV con only CLINICAL HISTORY: post op pain TECHNIQUE: Helical axial images of the abdomen and pelvis were obtained and displayed. Automated dose lowering techniques and/or adjustment according to patient size were utilized for this exam. This exam was performed with intravenous contrast. CT DOSE: 415.05 mGy.cm COMPARISON: None available at the time of this dictation. FINDINGS: Lower chest: Bronchial wall thickening and emphysematous changes Liver: Irregular hypodensity in the posterior aspect of the liver measures up to 27 x 20 mm in greatest transverse dimension. It extends superiorly along the posterior hepatic capsule. Hypodensities in the liver are too small to characterize but may represent cysts. Gallbladder and biliary tree: Patient is status post cholecystectomy. A small amount of pneumobilia is noted. Pancreas: Unremarkable, no focal lesions. Spleen: Calcifications are noted in the spleen compatible with prior granulomatous disease. Adrenals: Unremarkable. Kidneys and ureters: Renal cysts are seen. Bladder: Unremarkable. Reproductive organs: Patient is status post hysterectomy. Bowel: Patient is status post partial colectomy. There is narrowing of the bowel at the distal anastomosis without evidence of obstruction. Lymph nodes Retroperitoneal: Subcentimeter lymph nodes are noted. Pelvic: Unremarkable. Mesenteric: Unremarkable. Peritoneum: Normal. Vessels: Atherosclerotic calcifications are seen. Abdominal wall: Soft tissue thickening is seen about the midline which may represent postsurgical change. Bones: Unremarkable. IMPRESSION: 1. There is a ill-defined hypodense collection in the posterior aspect of the liver. This may represent a hepatic abscess versus less likely bile duct injury. 2. Small amount of pneumobilia which may represent sphincter of Jaleel dysfunction. 3. Postsurgical changes of bowel resection. There is narrowing of the bowel at the distal anastomosis, however no bowel obstruction is seen. No intraperitoneal fluid collections. ACT 112: Negative or not required by law. Electronically signed by: Domingo Perry M.D. 10/06/2023 7:18 PM Discharge Plan Visit Data Chief Complaint: Abdominal Pain Stated Complaint: ABDOMINAL PAIN ED Provider: Fran Leo Discharge Problem: Post-operative pain, Abscess of liver, Abdominal pain Patient Disposition: Being Evaluated by Hospitalist Forms Stand Alone Forms: My [facility] Prescriptions Prescriptions: No Action levothyroxine 150 mcg tablet 150 mcg PO DAILY Qty: 90 3RF buspirone 15 mg tablet 15 mg PO Q6H PRN (Reason: anxiety) Qty: 90 3RF Spiriva Respimat 2.5 mcg/actuation mist 2 puff inhalation DAILY Qty: 3 3RF Rx Instructions: 90 day supply albuterol sulfate [ProAir HFA] 90 mcg/actuation HFA aerosol inhaler 1 inh inhalation QID PRN (Reason: ASTHMA, COPD) Qty: 6.7 5RF atorvastatin 40 mg tablet 40 mg PO QPM Qty: 90 3RF budesonide-formoterol [Symbicort] 160-4.5 mcg/actuation HFA aerosol inhaler 2 puff inhalation BID Qty: 3 3RF Rx Instructions: 90 day supply escitalopram oxalate 10 mg tablet 10 mg PO DAILY Qty: 90 3RF esomeprazole magnesium [Nexium] 40 mg capsule,delayed release(DR/EC) 40 mg PO BID Qty: 180 3RF loperamide 2 mg capsule 2 mg PO Q6H PRN (Reason: loose stool) Qty: 270 3RF metoprolol succinate 50 mg tablet extended release 24 hr 50 mg PO QPM Qty: 90 3RF nitroglycerin 0.4 mg tablet, sublingual 0.4 mg sublingual Q5M PRN (Reason: chest pain) Qty: 25 3RF Rx Instructions: do not exceed 3 doses per episode potassium gluconate 500 mg (83 mg) Tablet 0 mg PO DAILY Rx Instructions: PT UNSURE OF STRENGTH Referrals Referrals: Nory Avila CRNP [Primary Care Provider] - Discharge Problem: Abdominal pain Qualifiers: Abdominal location: generalized Qualified Code(s): R10.84 - Generalized abdominal pain
[2023-10-06] MEDS: ONDANSETRON INJ 2 MG/ML 2 ML VIAL IV STA (18:21)
[2023-10-06] MEDS: HYDROmorphone INJ 0.5 MG/0.5 ML SYR IV PRN (18:21)
[2023-10-06] MEDS: SODIUM CHLORIDE 0.9% 1,000 ML IV STA (18:21)
[2023-10-06 18:42] LABS: Basophils # (auto) 0.07 K/uL (0.00-0.20); Basophils % (auto) 0.9 %; Eosinophils # (auto) 0.29 K/uL (0.00-0.50); Eosinophils % (auto) 3.6 %; Hematocrit (blood only) 35.5 % (37.0-47.0); Hemoglobin 10.5 g/dl (12.0-16.0); Immature Granulocytes # (auto) 0.02 K/uL (0.01-0.20); Immature Granulocytes % (auto) 0.2 %; Lymphocytes # (auto) 2.27 K/uL (1.20-3.40); Lymphocytes % (auto) 28.1 %; Mean Corpuscular Hemoglobin 23.3 pg (25.0-34.0); Mean Corpuscular Hgb Conc 29.6 g/dL (32.0-36.0); Mean Corpuscular Volume 78.7 fL (80.0-100.0); Mean Platelet Volume 10.7 fL (9.4-12.4); Monocytes # (auto) 0.47 K/uL (0.11-0.59); Monocytes % (auto) 5.8 %; Neutrophils # (auto) 4.97 K/uL (1.40-6.50); Neutrophils % (auto) 61.4 %; Platelet Count 368 K/uL (130-400); RDW Coefficient of Variation 17.7 % (11.5-14.5); RDW Standard Deviation 50.3 fL (36.4-46.3); Red Blood Count 4.51 M/uL (4.20-5.40); White Blood Count 8.09 K/ul (4.8-10.8)
[2023-10-06 18:55] LABS: iSTAT Creatinine 0.6 mg/dl (0.6-1.3); iSTAT Hemoglobin 10.9 g/dl (12.0-16.0); iSTAT Ionized Calcium 1.27 mmol/l (1.12-1.32); iSTAT Potassium 3.6 mmol/L (3.3-5.0)
[2023-10-06 19:03] LABS: Alanine Aminotransferase 10 U/L (7-52); Albumin Globulin Ratio 1.4 (0.9-2); Albumin Level 3.8 gm/dl (3.4-5.0); Alkaline Phosphatase 82 U/L (34-104); Anion Gap 9 (3-11); Aspartate Aminotransferase 13 U/L (13-39); BUN Creatinine Ratio 26.2 (10-20); Bilirubin,Total 0.3 mg/dl (0.2-1.0); Blood Urea Nitrogen 16 mg/dl (6-23); Calcium 8.9 mg/dl (8.6-10.3); Carbon Dioxide 21 mmol/L (21-32); Chloride 109 mmol/L (98-107); Est GFR (Non-African American) 103.5 ml/min; Globulin 2.7 gm/dl (2.5-4.0); Glucose 91 mg/dl (70-99(Fasting)); Lipase 19 U/L (11-82); Potassium 3.6 mmol/L (3.5-5.1); Sodium 139 mmol/L (136-145); Total Protein 6.5 gm/dl (6.0-8.3)
[2023-10-06] MEDS: OPTIRAY 320 100ml IV ONE (19:03)
--- NOTE | 2023-10-06 19:21 | CT Scan Report ---
CT abd pelvis IV con only CLINICAL HISTORY: post op pain TECHNIQUE: Helical axial images of the abdomen and pelvis were obtained and displayed. Automated dose lowering techniques and/or adjustment according to patient size were utilized for this exam. This e xam was performed with intravenous contrast. CT DOSE: 415.05 mGy.cm COMPARISON: None available at the time of this dictation. FINDINGS: Lower chest: Bronchial wall thickening and emphysematous changes Liver: Irregular hypodensity in the posterior aspect of the liver measures up to 27 x [address] transverse dimension. It extends superiorly along the posterior hepatic capsule. Hypodensities in the liver are too small to characterize but may represent cysts. Gallbladder and biliary tree: Patient is status post cholecystectomy. A small amount of pneumobilia i s noted. Pancreas: Unremarkable, no focal lesions. Spleen: Calcifications are noted in the spleen compatible with prior granulomatous disease. Adrenals: Unremarkable. Kidneys and ureters: Renal cysts are seen. Bladder: Unremarkable. Reproductive organs: Patient is status post hysterectomy. Bowel: Patient is status post partial colectomy. There is narrowing of the bowel at the distal anasto mosis without evidence of obstruction. Lymph nodes Retroperitoneal: Subcentimeter lymph nodes are noted. Pelvic: Unremarkable. Mesenteric: Unremarkable. Peritoneum: Normal. Vessels: Atherosclerotic calcifications are seen. Abdominal wall: Soft tissue thickening is seen about the midline which may represent postsurgical noel nge. Bones: Unremarkable. IMPRESSION: 1. There is a ill-defined hypodense collection in the posterior aspect of the liver. This may repres ent a hepatic abscess versus less likely bile duct injury. 2. Small amount of pneumobilia which may represent sphincter of Jaleel dysfunction. 3. Postsurgical changes of bowel resection. There is narrowing of the bowel at the distal anastomosi s, however no bowel obstruction is seen. No intraperitoneal fluid collections. ACT 112: Negative or not required by law. Electronically signed by: Domingo Perry M.D. 10/06/2023 7:18 PM
[2023-10-06] MEDS ORDERED: VANCOMYCIN CONSULT ACTIVE PRN ×2 (20:07→22:45)
[2023-10-06] MEDS: metroNIDAZOLE 500 MG/100 ML BAG IV STA (20:42)
[2023-10-06] MEDS: cefTRIAXone SODIUM 2,000 MG/50 ML BAG IV STA (20:42)
--- NOTE | 2023-10-06 20:51 | History & Physical Report ---
Date of Service October 06, 2023 Assessment & Plan (1) Liver abscess: Plan: Pt is a 53 yo female with PMH of HTN, depression/anxiety, COPD, DVT/mesenteric ischemia, [place], and TIA presenting due to abdominal pain. Pt most recently had a SBO 05/2023 requiring ex lap and lysis of adhesions. Liver abscess - in the setting of recent surgery 05/2023 for SBO and extensive hx of multiple abdominal surgeries - VS stable; exam non toxic appearing w/ abdominal tenderness - lab work significant for no leukocytosis, CMP WNL, CRP neg, procal neg, lipase neg - CTAP showed 27 x 20 mm hypodense collection in posterior aspect of liver concerning for abscess- no bowel obstruction - blood cultures pending - s/p ceftriaxone x1, flagyl x1, and vanco x1 in ER - will expand coverage to cefepime; continue vanco and flagyl - d/t size and location of abscess (in addition to pt stability), transfer to tertiary center for drainage is not felt necessary upon admission; instead will trial IV antibiotics and monitor for clinical improvement - pain control w/ advil first line and dilaudid for breakthrough pain; zofran PRN for nausea Hx of ischemic colitis/mesenteric ischemia - resulting in multiple abdominal surgeries and subsequent bowel obstructions - most recent surgery 05/2023; abdominal incision does not appear infected at this time - continue to monitor surgical incision HTN - continue home metoprolol 50 mg daily HLD - continue home atorvastatin 40 mg daily Anxiety/depression - continue home buspirone and escitalopram COPD - no acute exacerbation - continue home inhalers Hypothyroidism - continue home levo 150 mcg daily Diet: heart healthy VTE ppx: high risk w/ hx of clot- lovenox Code: full Dispo: admit to med/surg (2) COPD with emphysema: (3) Hypertension: (4) History of ischemic colitis: (5) Hypothyroidism: (6) Hyperlipidemia: History of Present Illness Chief Complaint: abdominal pain Primary Care Provider: PATY Jones Pt is a 53 yo female with PMH of HTN, depression/anxiety, COPD, DVT/mesenteric ischemia, [place], and TIA presenting due to abdominal pain. Pt most recently had a SBO 05/2023 requiring ex lap and lysis of adhesions. Pt explains that she has been having abdominal pain since her last abdominal surgery in 05/2023. She notes that her ex lap incision has not completely healed and has been draining pus. She has completed two courses of doxy prescribed by her surgery team for this- her last dose of the second course was yesterday. Her abdominal pain has been progressively worsening over the last few weeks. Over the past few days, she has also been intermittently vomiting. She denies fevers and SOB but does endorse feeling cold and occasional chest pain. She states she was told that she may have a chronic pain due to her abdominal nerves being cut so many times but she has resisted being put on chronic pain medications. She manages her pain at home with advil. She endorses a complicated history of abdominal surgeries stemming from a blood clot that she states dropped from her heart and into her bowels leaving large portions of her bowels necrotic. She has had much of her colon/small bowel resected due to this. She had an ostomy for a number of years which was reversed ~4 yrs ago. She also has had her gallbladder, appendix, uterus, and ovaries removed. Overall, she has had at least 25 abdominal surgeries including multiple bowel obstructions. She does have a hx of an intra-abdominal infection which required surgical drainage. In the ER, pt was given vanco x1, flagyl x1, ceftriaxone x1, 1L of NS, zofran 4 mg x1, and dilaudid 0.5mg x3. Allergies Allergy/AdvReac Type Severity Reaction Status Date / Time amoxicillin Allergy Severe HIVES, Verified 10/06/23 19:42 THROAT SWELLS Penicillins Allergy Severe Hives, Verified 10/06/23 19:42 throat swells shit acetaminophen [From Tylenol] AdvReac Intermediate N/V, Verified 10/06/23 19:42 "MAKES MY LIVER COUNT GO UP" fentanyl AdvReac Intermediate WITH HIGH Verified 10/06/23 19:42 DOSES - Hallucinations codeine AdvReac Mild Nausea Verified 10/06/23 19:42 Home Medications Medication Instructions Recorded Confirmed Type albuterol sulfate 90 mcg/actuation 1 inh inhalation QID PRN ASTHMA, 05/08/23 10/06/23 Rx aerosol inhaler (ProAir HFA) COPD #6.7 grams atorvastatin 40 mg tablet 40 mg PO QPM #90 tabs 05/08/23 10/06/23 Rx budesonide-formoterol HFA 160 2 puff inhalation BID #3 Inhalers 05/08/23 10/06/23 Rx mcg-4.5 mcg/actuation aerosol inhaler (Symbicort) escitalopram oxalate 10 mg tablet 10 mg PO DAILY #90 tabs 05/08/23 10/06/23 Rx loperamide 2 mg capsule 2 mg PO Q6H PRN loose stool #270 05/08/23 10/06/23 Rx caps metoprolol succinate 50 mg 50 mg PO QPM #90 tabs 05/08/23 10/06/23 Rx tablet,extended release 24 hr nitroglycerin 0.4 mg sublingual 0.4 mg sublingual Q5M PRN chest 05/08/23 10/06/23 Rx tablet pain #25 tabs tiotropium bromide 2.5 2 puff inhalation DAILY #3 Inhalers 05/08/23 10/06/23 Rx mcg/actuation mist for inhalation (Spiriva Respimat) buspirone 15 mg tablet 15 mg PO Q6H PRN anxiety #90 tabs 08/22/23 10/06/23 Rx potassium gluconate 500 mg (83 mg) 0 mg PO DAILY 10/06/23 10/06/23 History tablet baclofen 10 mg tablet 10 mg PO BID #60 tabs 10/09/23 Rx cyanocobalamin (vitamin B-12) 1,000 mcg PO DAILY #30 tabs 10/09/23 Rx 1,000 mcg tablet diphenhydramine HCl 25 mg capsule 25 mg PO Q6H PRN migraine 10/09/23 Rx (Benadryl) headache,take with metaclopramide #20 caps ferrous sulfate 325 mg (65 mg 325 mg PO DAILY #30 tabs 10/09/23 Rx iron) tablet levothyroxine 175 mcg tablet 175 mcg PO DAILYBB #30 tabs 10/09/23 Rx (Synthroid) metoclopramide HCl 10 mg tablet 10 mg PO Q6H PRN migraine 10/09/23 Rx headache,take with benadyl #20 tabs pantoprazole 40 mg tablet,delayed 40 mg PO BID #60 tabs 10/09/23 Rx release (Protonix) Past Med/Surg History Medical History Hypertension History of colon polyps History of renal failure Kidney cysts Liver cyst Crohn's disease ? - UNDETERMINED History of diverticulitis Acid reflux Degenerative disc disease, lumbar Bulging discs "SLIPPED DISCS C 5, 6 &7" - FULL ROM Depression Anxiety Arthritis History of thyroid disease "OVERACTIVE" 1995 - HX RADIATION History of blood clots 2012, PT HAD BLOOD CLOT FROM PT HEART DOWN TO BOWELS. MEDICALLY INDUCED COMA/[facility] History of COVID-19 PER PT - PROBABLE - HAD PHONE EVAL WITH PRACTITIONER - NO TEST FOR MAY 2020 COPD (chronic obstructive pulmonary disease) Asthma CONTROLLED History of anesthesia reaction WHEN WAKING UP - IF SOMETHING IS ON FACE WILL PULL AT IT - HX PULLING OUT TUBES Mini stroke 2012 WHILE IN MEDICALLY INDUCED COMA Acute myocardial infarction 2012 MILD [place] WHILE IN MEDICALLY INDUCED COMA Tachycardia Surgical History H/O exploratory laparotomy 07/2023 @[facility] with lysis of adhesions. S/P scar revision (~10/18/20) abdominal scar revision with umbilicoplasty - Dr. Stewart History of endoscopy History of colonoscopy History of surgical procedure Pt states having 16 surgeries since 2012 due to a blood clot that dropped from pt's heart to bowels. SURGERIES INCLUDE ILEOSTOMY, ATTEMPTED REVERSAL, AND REVERSAL History of cholecystectomy History of hysterectomy History of removal of ovarian cyst History of appendectomy Stented coronary artery TACHYCARDIA...07/2012 stent placed in right artery of heart , ANGIOPLASTY 2 PLACES Family History Mother Breast cancer Grandmother (Paternal) Breast cancer Cancer breast cancer, unknown cancer, and brain cancer Grandmother (Maternal) Breast cancer Family history of diabetes mellitus Aunt Cancer Grandfather (Maternal) Myocardial infarction Denies family history of Ovarian cancer Prostate cancer Colorectal cancer Social History Smoking Status: Current every day smoker Tobacco Type: Cigarettes packs per day: 0.5; Do You Dip or Chew Tobacco: No; Hx Alcohol Use: No Hx Substance Use: No Preferred Language: [place] Communication Ability: Effective Teletypesetter Monitor Required: No Beliefs That Will Affect Care: None marital status: Single Current Living Situation: Spouse Current Living Situation Comment: home with current occupational status: disabled How many Children do You have: 3 Feels Safe at Home: Yes caffeine: Yes Dental Care, Regularly: Yes Physical Activity Frequency: Daily Physical Activity Frequency Comment: housewor and walking the dogs daily Seatbelt Use: always Sunscreen Use: Yes Assistive Devices: Walker Review of Systems Review of Systems: As per HPI Physical Exam Constitutional: NAD, vitals WNL aside from hypertension. Respiratory: CTA bilaterally. Non labored breathing. No rhonchi, wheezing, or crackles. Cardiovascular: RRR. No murmurs noted. No LE edema. Gastrointestinal (Abdomen): Exquisitely tender throughout all 4 quadrants with minimal palpation. although pain seems worst in RLQ. Pain worse with direct palpation compared to rebound. Voluntary guarding noted. +BS. No distinct masses noted. Skin: No rashes noted. [place] granulation tissue of healing ex lap scar noted on midline abdomen. No purulence or erythema noted. Neurologic: Sensation grossly intact. No FND appreciated. Psychiatric: Speech of normal pace and content. Mood and affect congruent. Results & Data Results & Data Vital Signs (Past 12 Hours) Vital Signs Temp Pulse Resp BP Pulse Ox O2 Del Method 10/06/23 19:50 82 14 93 10/06/23 19:40 86 21 96 10/06/23 19:30 83 17 96 10/06/23 19:30 131/93 10/06/23 19:20 85 20 97 10/06/23 19:10 85 23 97 10/06/23 19:09 87 20 96 10/06/23 19:09 170/102 H 10/06/23 19:07 86 21 95 10/06/23 18:47 Room Air 10/06/23 18:40 78 18 10/06/23 18:38 80 18 10/06/23 18:38 164/109 H 10/06/23 18:30 85 17 10/06/23 18:30 166/105 H 10/06/23 18:29 84 10/06/23 18:28 80 19 10/06/23 18:27 169/106 H 10/06/23 17:56 36.9 C 95 H 18 172/120 H 100 Room Air Supervising Physician Co-Signing Physician Notes Attending addendum: I have physically seen this patient, have supervised the medical residents activities, and agree with the H&P unless as otherwise noted. Assessment and Plan: Liver abscess- Status post SBO surgery 1223, with extensive history of multiple abdominal surgeries associated with history of ischemic colitis and mesenteric ischemia CT abdomen/pelvis with 27 x 20 mm hypodense collection in the posterior aspect of the liver concerning for abscess. No signs of ischemia Follow cultures and sensitivities From the ER received the following: Vancomycin IV, Flagyl IV and ceftriaxone IV Admit on vancomycin IV, cefepime IV and Flagyl IV Location and size of abscess limits possibility of IR procedure To consider MRI for further clarification Consult gastroenterology Hypertension- To metoprolol with hold parameters COPD- At baseline Continue usual inhalers Remaining orders and notations as noted Resident Activity Tracking Resident Involvement: Resident Care Provided Care Provided: Adult Hospital Medicine
[2023-10-06] MEDS: VANCOMYCIN HCL 2,000 MG in SODIUM CHLORIDE 0.9% 500 ML IV ONE (21:34)
[2023-10-06] MEDS ORDERED: ACETAMINOPHEN 325 MG TAB PO PRN (21:34)
[2023-10-06 21:47] LABS: Appearance Urine Clear (Clear); Bilirubin Urine Negative (Negative); Blood Urine Negative (Negative); Color Urine Yellow; Glucose Urine UA Negative (Negative); Ketones Urine Negative (Negative); Leukocyte Esterase Urine Negative (Negative); Nitrite Urine Negative (Negative); Protein Urine Negative (Negative); Specific Gravity Urine > 1.045 (1.000-1.030); Urobilinogen Urine Negative (Negative); pH Urine 5.5 (4.5-7.5)
[2023-10-06 21:53] LABS: C Reactive Protein < 0.50 mg/dl (0-0.5)
[2023-10-06] MEDS: CEFEPIME 2,000 MG/20 ML VIAL IV STA (22:15)
[2023-10-06] MEDS ORDERED: ALBUTEROL HFA 8 GM INHALER INH PRN (22:45)
[2023-10-06] MEDS ORDERED: busPIRone 15 MG TAB PO PRN (22:45)
[2023-10-06] MEDS ORDERED: LOPERAMIDE HCL 2 MG CAP PO PRN (22:45)
[2023-10-06] MEDS: IBUPROFEN 600 MG TAB PO PRN (23:17)
[2023-10-06] MEDS: MELATONIN 3 MG TAB PO PRN (23:17)
[2023-10-07] MEDS: VANCOMYCIN HCL 1,000 MG in SODIUM CHLORIDE 0.9% 250 ML IV ONE (00:15)
[2023-10-07] MEDS: HYDROmorphone INJ 0.5 MG/0.5 ML SYR IV PRN (02:20)
[2023-10-07] MEDS: ONDANSETRON INJ 2 MG/ML 2 ML VIAL IV PRN (02:20)
[2023-10-07] MEDS: metroNIDAZOLE 500 MG/100 ML BAG IV SCH (04:50)
[2023-10-07] MEDS: LEVOTHYROXINE SODIUM 150 MCG TABLET PO SCH (06:37)
[2023-10-07] MEDS: VANCOMYCIN HCL 1,000 MG in SODIUM CHLORIDE 0.9% 250 ML IV SCH (06:37)
[2023-10-07 07:21] LABS: Hematocrit (blood only) 32.3 % (37.0-47.0); Hemoglobin 9.6 g/dl (12.0-16.0); Mean Corpuscular Hemoglobin 23.8 pg (25.0-34.0); Mean Corpuscular Hgb Conc 29.7 g/dL (32.0-36.0); Mean Corpuscular Volume 80.1 fL (80.0-100.0); Mean Platelet Volume 10.2 fL (9.4-12.4); Platelet Count 302 K/uL (130-400); RDW Coefficient of Variation 17.8 % (11.5-14.5); RDW Standard Deviation 51.8 fL (36.4-46.3); Red Blood Count 4.03 M/uL (4.20-5.40)
[2023-10-07] MEDS: ENOXAPARIN INJ 40 MG/0.4 ML SYR SQ SCH (07:38)
[2023-10-07] MEDS: ESCITALOPRAM OXALATE 10 MG TAB PO SCH (07:39)
[2023-10-07] MEDS: UMECLIDINIUM BROMIDE 62.5MCG/BLISTER 7 PUFFS/INHALER INH SCH (07:40)
[2023-10-07] MEDS: PANTOprazole 40 MG TAB PO SCH (07:40)
[2023-10-07] MEDS: FLUTICASONE/VILANTEROL 100/25MCG 14 PUFFS/INHALER INH SCH (07:40)
[2023-10-07 07:45] LABS: BUN Creatinine Ratio 20.3 (10-20); Calcium 8.4 mg/dl (8.6-10.3); Creatinine Clr Calc Pharmacy 83.8 ml/min; Est GFR (African American) 118.1 ml/min; Est GFR (Non-African American) 101.9 ml/min; Potassium 3.4 mmol/L (3.5-5.1)
--- NOTE | 2023-10-07 09:27 | Pharmacy Report ---
Pharmacy PK ABX Note - Date of Service October 07, 2023 - Assessment and Plan Assessment 53 year old F started on broad spectrum antibiotics - vancomycin/cefepime/flagyl for intra-abdominal infection/liver abscess (as seen on abd/pelvis CT). PMHx significant for SBO 05/2023 requiring ex lap and lysis of adhesions. Since this procedure, patient reporting abdominal pain and drainage now occurring. Previously on 2 courses of doxycycline, however with worsening abdominal pain. Extensive history of abdominal surgeries in the past. Blood cultures pending. Plan Vancomycin * Loading dose: 1000 mg x 1 (did receive partial 2000 mg bag - only ~50 ml infused / weight updated and dose was changed to appropriate dose) * Maintenance dose: 1000 mg IV every 12 hours * Regimen is predicted to achieve target AUC/MICHELLE of 400-600 mg/L.hr * Random level ordered for 10/07 at 1200 Pharmacy will continue to follow and will adjust dose/frequency as necessary. Thank you. Pharmacy has transitioned to AUC monitoring for vancomycin. AUC/MICHELLE is the preferred PK/PD target and is associated with decreased risk of nephrotoxicity compared to traditional trough targets.
[2023-10-07] MEDS: POTASSIUM CHLORIDE CRTAB 20 MEQ TABCR PO STA (09:54)
[2023-10-07] MEDS: CEFEPIME 2,000 MG in SYRINGE 0 ML IV SCH (09:55)
[2023-10-07 10:31] LABS: Thyroid Stimulating Hormone 25.704 uIu/ml (0.300-4.500)
--- NOTE | 2023-10-07 11:39 | Surgery Consultation ---
Date of Consultation October 07, 2023 Assessment & Plan (1) Abdominal pain: (2) Abscess of liver: Plan 53 year-old female with history of multiple abdominal surgeries (26 per patient) with most recent surgery being ex lap with extensive lysis of adhesions in July 2023. CT scan here at [facility] showing possible liver abscess of posterior aspect of liver. No bowel obstruction. No pneumoperitoneum. She does have narrowing at the small bowel/rectal anastomosis. She is afebrile and has no leukocytosis. Chronic abdominal pain history previously on narcotics and gabapentin however has not been on in some time and has never seen pain management. Abdominal exam is soft with generalized tenderness and voluntary guarding however no peritonitis. No midline infection appreciated on exam today. Plan: No acute surgical intervention required at this time. Given patients multiple abdominal surgeries and complex surgery history, will obtain CT scan images/reports from [facility] and [facility] as the liver mass/abscess could be chronic findings. Feel abscess less likely as she has no fever and no leukocytosis. Interestingly she did have history of postoperative bile leak in . Possibly dilated CBD on CT scan at [facility] 05/2023 per discharge summary from her [facility] Hospitalization in July 2023. She has been having squeezing epigastric upper abdominal pain aside from her chronic abdominal pain which could be possibly PUD/severe gastritis in setting of NSAIDs daily for 4 months for postop pain/chronic pain. Would recommend GI consultation for possible endoscopy, continue BID PPI. She may also require MRCP for further evaluation of this liver mass/abscess and further review of her most recent CT scan in July. Would suggest pain management consult Continue abx for now Continue medical management okay for diet from surgical standpoint pending GI consult and further imaging requests (possible MRCP?) Dr. Elena has seen and examined patient, agrees with above. Supervising Physician Co-Signing Physician Notes I have seen and examined the patient personally and agree with the above assessment plan. This 53-year-old woman with history of multiple abdominal surgeries with most recent surgery being an ex lap with extensive lysis of adhesions at [facility] in July 2023. She has a possible liver abscess versus mass in the posterior aspect of her liver. There is also question of some inflammation at the duodenal bulb/antrum. No surgical intervention is required at this time. I would recommend GI consultation for possible EGD and possible workup of the liver mass/potential abscess. We will follow along. History of Present Illness Reason for Consultation: acute on chronic abdominal pain, liver mass Requesting Physician: Laisha Brown MD Attending Physician: Laisha Brown MD History of Present Illness Vonda is a 53 year-old female with history of multiple abdominal surgeries (2 5 surgeries per patient) dating back to who presented to emergency department due to increasing abdominal pain for past few weeks. Vonda has a history of ischemic colitis with subtotal colectomy, ileostomy, ileostomy reversal along with hysterectomy, cholecystectomy, intra-abdominal abscess requiring drainage and most recent ex lap with extensive lysis of adhesions for bowel obstruction at [facility] in July of 2023 among other abdominal surgeries. States she has chronic abdominal pain from all of the surgeries however she has had infection of the midline incision with two course of oral antibiotics since the surgery as well as increasing pain. Describes pain as jolts of stabbing pain and burning pain but also a squeezing pain in the upper mid abdomen that has not been improving. Takes Motrin, Aleve for pain and has been taking 3-4 times a day since her surgery 4 months ago. Has avoided narcotic recently as she did not like being on them in the past. States her bowel are moving multiple times a day and are mostly soft and loose. Denies of any fever, chills, sweats, difficulty urinating, blood in urine, blood in stools, black/tarry stools, postprandial pain . Able to eat without abdominal pain. Has vomited a few times in last week but no vomiting blood. No increase in heartburn out of the ordinary. Takes daily Nexium. Further discussion with patient she had laparoscopic cholecystectomy in and developed postop bile leak which required a second operation. In review of her records from [facility] in July of this year, she had CT scan of abdomen and pelvis at [facility] prior to her transfer to [facility] which showed SBO as well as dilated common bile duct up to 1.3 cm at level of ampulla. Do not have official report however. She states gastroenterology was consulted during her stay however she does not remember what was all discussed as she was on the ventilator and in the ICU for 5 days. Allergies Allergy/AdvReac Type Severity Reaction Status Date / Time amoxicillin Allergy Severe HIVES, Verified 10/06/23 19:42 THROAT SWELLS Penicillins Allergy Severe Hives, Verified 10/06/23 19:42 throat swells shit acetaminophen [From Tylenol] AdvReac Intermediate N/V, Verified 10/06/23 19:42 "MAKES MY LIVER COUNT GO UP" fentanyl AdvReac Intermediate WITH HIGH Verified 10/06/23 19:42 DOSES - Hallucinations codeine AdvReac Mild Nausea Verified 10/06/23 19:42 Home Medications Medication Instructions Recorded Confirmed Type albuterol sulfate 90 mcg/actuation 1 inh inhalation QID PRN ASTHMA, 05/08/23 10/06/23 Rx aerosol inhaler (ProAir HFA) COPD #6.7 grams atorvastatin 40 mg tablet 40 mg PO QPM #90 tabs 05/08/23 10/06/23 Rx budesonide-formoterol HFA 160 2 puff inhalation BID #3 Inhalers 05/08/23 10/06/23 Rx mcg-4.5 mcg/actuation aerosol inhaler (Symbicort) escitalopram oxalate 10 mg tablet 10 mg PO DAILY #90 tabs 05/08/23 10/06/23 Rx esomeprazole magnesium 40 mg 40 mg PO BID #180 caps 05/08/23 10/06/23 Rx capsule,delayed release (Nexium) loperamide 2 mg capsule 2 mg PO Q6H PRN loose stool #270 05/08/23 10/06/23 Rx caps metoprolol succinate 50 mg 50 mg PO QPM #90 tabs 05/08/23 10/06/23 Rx tablet,extended release 24 hr nitroglycerin 0.4 mg sublingual 0.4 mg sublingual Q5M PRN chest 05/08/23 10/06/23 Rx tablet pain #25 tabs tiotropium bromide 2.5 2 puff inhalation DAILY #3 Inhalers 05/08/23 10/06/23 Rx mcg/actuation mist for inhalation (Spiriva Respimat) levothyroxine 150 mcg tablet 150 mcg PO DAILY #90 tabs 07/29/23 10/06/23 Rx buspirone 15 mg tablet 15 mg PO Q6H PRN anxiety #90 tabs 08/22/23 10/06/23 Rx potassium gluconate 500 mg (83 mg) 0 mg PO DAILY 10/06/23 10/06/23 History tablet Patient History Medical History Hypertension History of colon polyps History of renal failure Kidney cysts Liver cyst Crohn's disease ? - UNDETERMINED History of diverticulitis Acid reflux Degenerative disc disease, lumbar Bulging discs "SLIPPED DISCS C 5, 6 &7" - FULL ROM Depression Anxiety Arthritis History of thyroid disease "OVERACTIVE" 1995 - HX RADIATION History of blood clots 2012, PT HAD BLOOD CLOT FROM PT HEART DOWN TO BOWELS. MEDICALLY INDUCED COMA/OSS HEALTH - TERESA GUTIERREZ History of COVID-19 PER PT - PROBABLE - HAD PHONE EVAL WITH PRACTITIONER - NO TEST FOR MAY 2020 COPD (chronic obstructive pulmonary disease) Asthma CONTROLLED History of anesthesia reaction WHEN WAKING UP - IF SOMETHING IS ON FACE WILL PULL AT IT - HX PULLING OUT TUBES Mini stroke 2012 WHILE IN MEDICALLY INDUCED COMA Acute myocardial infarction 2012 MILD [place] WHILE IN MEDICALLY INDUCED COMA Tachycardia Surgical History H/O exploratory laparotomy 07/2023 @[facility] with lysis of adhesions. S/P scar revision (~10/18/20) abdominal scar revision with umbilicoplasty - Dr. Stewart History of endoscopy History of colonoscopy History of surgical procedure Pt states having 16 surgeries since 2012 due to a blood clot that dropped from pt's heart to bowels. SURGERIES INCLUDE ILEOSTOMY, ATTEMPTED REVERSAL, AND REVERSAL History of cholecystectomy History of hysterectomy History of removal of ovarian cyst History of appendectomy Stented coronary artery TACHYCARDIA...07/2012 stent placed in right artery of heart , ANGIOPLASTY 2 PLACES Family History Mother Breast cancer Grandmother (Paternal) Breast cancer Cancer breast cancer, unknown cancer, and brain cancer Grandmother (Maternal) Breast cancer Family history of diabetes mellitus Aunt Cancer Grandfather (Maternal) Myocardial infarction Denies family history of Ovarian cancer Prostate cancer Colorectal cancer Social History Smoking Status: Current every day smoker Tobacco Type: Cigarettes packs per day: 0.5; Do You Dip or Chew Tobacco: No; Hx Alcohol Use: No Hx Substance Use: No Preferred Language: Peruvian Communication Ability: Effective Civil Engineering Manager Required: No Beliefs That Will Affect Care: None marital status: Single Current Living Situation: Spouse Current Living Situation Comment: home with current occupational status: disabled How many Children do You have: 3 Other Information That Helps Us Care for You: No Feels Safe at Home: Yes Safety Concerns: Feels Safe At This Time caffeine: Yes Dental Care, Regularly: Yes Physical Activity Frequency: Daily Physical Activity Frequency Comment: housewor and walking the dogs daily Seatbelt Use: always Sunscreen Use: Yes Assistive Devices: Walker Physical Exam Constitutional: WD/WN, vitals as above cooperative and comfortable; no acute distress and not ill appearing Respiratory: normal respiratory effort; no respiratory distress, no labored breathing and no retractions Gastrointestinal (Abdomen): Inspection/Auscultation: normal bowel sounds and + abdominal surgical scar (midline abdominal scar , RLQ ostomy scar); abdomen not distended and no abdominal surgical drain present Percussion/Palpation: + abdomen tender (generalized), + guarding (voluntary generalized) and abdomen soft; abdomen not rigid and abdomen not firm No peritonitis Chronic midline laparotomy scarring from multiple abdominal surgeries Skin: no rashes, warm and dry no jaundice Psychiatric: Orientation: alert and oriented x 3 Results & Data Vital Signs (Past 12 Hours) Vital Signs Temp Pulse Resp BP Pulse Ox O2 Del Method 10/07/23 07:42 36.3 C L 72 18 138/78 96 Room Air Laboratory Results 10/07/23 10/06/23 10/06/23 Range/Units 06:52 20:59 18:42 WBC 6.20 (4.8-10.8) K/ul RBC 4.03 L (4.20-5.40) M/uL Hgb 9.6 L (12.0-16.0) g/dl POC Hgb 10.9 L (12.0-16.0) g/dl Hct 32.3 L (37.0-47.0) % POC Hct 32 L (37-47) % MCV 80.1 (80.0-100.0) fL MCH 23.8 L (25.0-34.0) pg MCHC 29.7 L (32.0-36.0) g/dL RDW Std Deviation 51.8 H (36.4-46.3) fL RDW Coeff of Ismael 17.8 H (11.5-14.5) % Plt Count 302 (130-400) K/uL MPV 10.2 (9.4-12.4) fL Immature Gran % (Auto) % Neut % (Auto) % Lymph % (Auto) % [place] % (Auto) % Eos % (Auto) % Baso % (Auto) % Neut # (Auto) (1.40-6.50) K/uL Lymph # (Auto) (1.20-3.40) K/uL [place] # (Auto) (0.11-0.59) K/uL Eos # (Auto) (0.00-0.50) K/uL Baso # (Auto) (0.00-0.20) K/uL Immature Gran # (Auto) (0.01-0.20) K/uL POC Sodium 141 (135-144) mmol/L Sodium 137 (136-145) mmol/L POC Potassium 3.6 (3.3-5.0) mmol/L Potassium 3.4 L (3.5-5.1) mmol/L POC Chloride 108 (101-112) mmol/L Chloride 110 H (98-107) mmol/L Carbon Dioxide 21 (21-32) mmol/L POC Total CO2 23 L (24-31) mmol/L Anion Gap 6 (3-11) POC Anion Gap 15.0 L (16-25) mmol/L POC BUN 15 (7-18) mg/dl BUN 13 (6-23) mg/dl Creatinine 0.64 (0.6-1.2) mg/dl POC Creatinine 0.6 (0.6-1.3) mg/dl Est Cr Clr Drug Dosing 83.8 Est GFR ( Amer) 118.1 ml/min Est GFR (Non-Af Amer) 101.9 ml/min BUN/Creatinine Ratio 20.3 H (10-20) Glucose 113 H (70-99(Fasting)) mg/dl POC Glucose (other) 89 (70-99) mg/dl Calcium 8.4 L (8.6-10.3) mg/dl POC Ioniz Calcium Chun 1.27 (1.12-1.32) mmol/l Total Bilirubin (0.2-1.0) mg/dl AST (13-39) U/L ALT (7-52) U/L Alkaline Phosphatase (34-104) U/L C-Reactive Protein (0-0.5) mg/dl Total Protein (6.0-8.3) gm/dl Albumin (3.4-5.0) gm/dl Globulin (2.5-4.0) gm/dl Albumin/Globulin Ratio (0.9-2) Lipase (11-82) U/L Procalcitonin (0-0.5) ng/ml TSH 25.704 H (0.300-4.500) uIu/ml Urine Color Yellow Urine Appearance Clear (Clear) Urine pH 5.5 (4.5-7.5) Ur Specific [place] > 1.045 H (1.000-1.030) Urine Protein Negative (Negative) Urine Glucose (UA) Negative (Negative) Urine Ketones Negative (Negative) Urine Blood Negative (Negative) Urine Nitrite Negative (Negative) Urine Bilirubin Negative (Negative) Urine Urobilinogen Negative (Negative) Ur Leukocyte Esterase Negative (Negative) 10/06/23 10/06/23 Range/Units 18:29 18:28 WBC 8.09 (4.8-10.8) K/ul RBC 4.51 (4.20-5.40) M/uL Hgb 10.5 L (12.0-16.0) g/dl POC Hgb (12.0-16.0) g/dl Hct 35.5 L (37.0-47.0) % POC Hct (37-47) % MCV 78.7 L (80.0-100.0) fL MCH 23.3 L (25.0-34.0) pg MCHC 29.6 L (32.0-36.0) g/dL RDW Std Deviation 50.3 H (36.4-46.3) fL RDW Coeff of Ismael 17.7 H (11.5-14.5) % Plt Count 368 (130-400) K/uL MPV 10.7 (9.4-12.4) fL Immature Gran % (Auto) 0.2 % Neut % (Auto) 61.4 % Lymph % (Auto) 28.1 % [place] % (Auto) 5.8 % Eos % (Auto) 3.6 % Baso % (Auto) 0.9 % Neut # (Auto) 4.97 (1.40-6.50) K/uL Lymph # (Auto) 2.27 (1.20-3.40) K/uL [place] # (Auto) 0.47 (0.11-0.59) K/uL Eos # (Auto) 0.29 (0.00-0.50) K/uL Baso # (Auto) 0.07 (0.00-0.20) K/uL Immature Gran # (Auto) 0.02 (0.01-0.20) K/uL POC Sodium (135-144) mmol/L Sodium 139 (136-145) mmol/L POC Potassium (3.3-5.0) mmol/L Potassium 3.6 (3.5-5.1) mmol/L POC Chloride (101-112) mmol/L Chloride 109 H (98-107) mmol/L Carbon Dioxide 21 (21-32) mmol/L POC Total CO2 (24-31) mmol/L Anion Gap 9 (3-11) POC Anion Gap (16-25) mmol/L POC BUN (7-18) mg/dl BUN 16 (6-23) mg/dl Creatinine 0.61 (0.6-1.2) mg/dl POC Creatinine (0.6-1.3) mg/dl Est Cr Clr Drug Dosing Not Reportable Est GFR ( Amer) 120.0 ml/min Est GFR (Non-Af Amer) 103.5 ml/min BUN/Creatinine Ratio 26.2 H (10-20) Glucose 91 (70-99(Fasting)) mg/dl POC Glucose (other) (70-99) mg/dl Calcium 8.9 (8.6-10.3) mg/dl POC Ioniz Calcium Chun (1.12-1.32) mmol/l Total Bilirubin 0.3 (0.2-1.0) mg/dl AST 13 (13-39) U/L ALT 10 (7-52) U/L Alkaline Phosphatase 82 (34-104) U/L C-Reactive Protein < 0.50 (0-0.5) mg/dl Total Protein 6.5 (6.0-8.3) gm/dl Albumin 3.8 (3.4-5.0) gm/dl Globulin 2.7 (2.5-4.0) gm/dl Albumin/Globulin Ratio 1.4 (0.9-2) Lipase 19 (11-82) U/L Procalcitonin < 0.02 (0-0.5) ng/ml TSH (0.300-4.500) uIu/ml Urine Color Urine Appearance (Clear) Urine pH (4.5-7.5) Ur Specific [place] (1.000-1.030) Urine Protein (Negative) Urine Glucose (UA) (Negative) Urine Ketones (Negative) Urine Blood (Negative) Urine Nitrite (Negative) Urine Bilirubin (Negative) Urine Urobilinogen (Negative) Ur Leukocyte Esterase (Negative) Diagnostic Findings CT abd pelvis IV con only CLINICAL HISTORY: post op pain TECHNIQUE: Helical axial images of the abdomen and pelvis were obtained and displayed. Automated dose lowering techniques and/or adjustment according to patient size were utilized for this exam. This exam was performed with intravenous contrast. CT DOSE: 415.05 mGy.cm COMPARISON: None available at the time of this dictation. FINDINGS: Lower chest: Bronchial wall thickening and emphysematous changes Liver: Irregular hypodensity in the posterior aspect of the liver measures up to 27 x 20 mm in greatest transverse dimension. It extends superiorly along the posterior hepatic capsule. Hypodensities in the liver are too small to characterize but may represent cysts. Gallbladder and biliary tree: Patient is status post cholecystectomy. A small amount of pneumobilia is noted. Pancreas: Unremarkable, no focal lesions. Spleen: Calcifications are noted in the spleen compatible with prior granulomatous disease. Adrenals: Unremarkable. Kidneys and ureters: Renal cysts are seen. Bladder: Unremarkable. Reproductive organs: Patient is status post hysterectomy. Bowel: Patient is status post partial colectomy. There is narrowing of the bowel at the distal anastomosis without evidence of obstruction. Lymph nodes Retroperitoneal: Subcentimeter lymph nodes are noted. Pelvic: Unremarkable. Mesenteric: Unremarkable. Peritoneum: Normal. Vessels: Atherosclerotic calcifications are seen. Abdominal wall: Soft tissue thickening is seen about the midline which may represent postsurgical change. Bones: Unremarkable. IMPRESSION: 1. There is a ill-defined hypodense collection in the posterior aspect of the liver. This may represent a hepatic abscess versus less likely bile duct injury. 2. Small amount of pneumobilia which may represent sphincter of Jaleel dy sfunction. 3. Postsurgical changes of bowel resection. There is narrowing of the bowel at the distal anastomosis, however no bowel obstruction is seen. No intraperitoneal fluid collections. (1) Abdominal pain Abdominal location: generalized Qualified Code(s): R10.84 - Generalized abdominal pain
--- NOTE | 2023-10-07 15:11 | Hospitalist Progress Note ---
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 Pt most recently had a SBO 05/2023 requiring ex lap and lysis of adhesions. She has had abdominal pain ever since mostly in the mid abdomen but goes down into the right greater than left quadrants She has been taking NSAIDs frequently for 4 months. No melena but is anemic. No nausea or vomiting. 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 Consult surgery for abdominal pain in the setting of numerous abdominal surgeries Consult GI for possible EGD for peptic ulcer disease as cause of upper abdominal pain and anemia-discussed with GI later in the day-make n.p.o. after midnight for EGD on Saturday Follow blood cultures Ibuprofen and IV Dilaudid as needed for pain Start IV Protonix twice daily in case of PUD (2) Migraine: Plan: Ongoing most days for the last 3 weeks with a history of migraines in her teenage years. With associated phonophobia and photophobia, nausea, severe right-sided headache Give abortive therapy with IV Reglan and Benadryl together now Ibuprofen as needed Check brain MRI given severe headache persistent for 3 weeks (3) Liver lesion: Plan: As noted above Unclear if mass or abscess May need biopsy Obtaining old CT scan records (4) COPD with emphysema: Plan: - no acute exacerbation - continue home inhalers (5) Hypertension: Plan: BPs are controlled Continue home metoprolol 50 mg daily (6) Hypothyroidism: Plan: TSH was 45, not rechecked since increasing levothyroxine as an outpatient to 150 mcg daily Check TSH here-still elevated but improved at 25 Increase levothyroxine 175 mcg daily-likely has difficulty with absorption given short gut syndrome Check TSH in 4 weeks (7) Hyperlipidemia: Plan: continue home atorvastatin 40 mg daily (8) CAD (coronary artery disease): Plan: With a history of remote coronary revascularization with PCI/stenting in 2013 as per cardiology notes She is not on aspirin or an antiplatelet as per her medication list but will confirm with her as previous cardiology notes show that she was on aspirin Continue metoprolol and atorvastatin No acute issues (9) Anxiety: Plan: No acute issues Continue home buspirone and escitalopram Plan DVT prophylaxis-add SCDs, avoid anticoagulation now with EGD tomorrow Disposition-continued stay Admission and Anticipated Discharge Date Admission Date: October 06, 2023 Subjective Pt reports chronic abdominal pain in mid abdomen spreading downward to lower abd R>L for 4 months since her last surgery. It has worsened slightly in the last few weeks. She is moving her bowels frequently every day which is chronic, nonbloody. Denies much nausea, is feeling hungry since I made her NPO today. Also reports a daily migraine on right side of head for the last 3 weeks, severe, associated with photo and phonophobia, nausea intermittently. She has tried ibuprofen and tylenol without improvement. She has a h/o migraines when she was a teenager but none since then. I discussed her care with Surgery and with GI Physical Exam Constitutional: WD/WN, vitals as above Eyes: PERRL, conjunctivae normal, anicteric sclerae Neck: trachea midline, no thyromegaly Respiratory: normal respiratory effort, lungs clear to auscultation Cardiovascular: RRR, no murmur, no edema Chest (Breasts): Chest: normal inspection of chest Gastrointestinal (Abdomen): Inspection/Auscultation: normal bowel sounds; + abdomen abnormal to inspection (multiple scars all over abdomen including large midline laparotomy scar) and abdomen not distended Percussion/Palpation: + abdomen tender (diffusely with minimal palpation,improved with distraction) and abdomen soft; no guarding Musculoskeletal: Extremities: extremities normal to inspection; no cyanosis and no clubbing Skin: no rashes, warm and dry Neurologic: moves all extremities and awake; no focal motor deficits Psychiatric: A+Ox3, euthymic affect Lymphatic: no lymphedema Results & Data Results & Data Vital Signs (Past 12 Hours) Vital Signs Temp Pulse Resp BP Pulse Ox O2 Del Method 10/07/23 14:37 36.5 C 86 16 134/79 97 Room Air 10/07/23 07:42 36.3 C L 72 18 138/78 96 Room Air Laboratory Results CBC, BMP reviewed PG Care Time/CCT Total # of Minutes Spent Total Time Spent with Patient: Total time spent is greater than 50% in coordination of care (as documented) at patient's floor/unit and/or counseling patient: Coding Level of Care Code 70379 SUB INP/OBS CARE 3/50MIN Diagnoses Abdominal pain R10.84 Abdominal location: generalized Migraine G43.909 Liver lesion K76.9 COPD with emphysema J43.9 Hypertension I10 Hypothyroidism E03.9 Hyperlipidemia E78.5 CAD (coronary artery disease) I25.10 Anxiety F41.9 (1) Abdominal pain Abdominal location: generalized Qualified Code(s): R10.84 - Generalized abdominal pain
[2023-10-07] MEDS: METOCLOPRAMIDE HCL INJ 5 MG/ML 2 ML VIAL IV STA (15:20)
[2023-10-07] MEDS: diphenhydrAMINE 50 MG/ML VIAL IV STA (15:20)
[2023-10-07] MEDS: ATORVASTATIN 40 MG TAB PO SCH (20:48)
[2023-10-07] MEDS: METOPROLOL SUCC 50MG EXT REL TAB PO SCH (20:48)
[2023-10-07] MEDS: PANTOprazole 40 MG in SYRINGE 0 ML IV SCH (22:41)
[2023-10-08] MEDS: GADOBUTROL 65ML VIAL IV ONE (00:03)
--- NOTE | 2023-10-08 01:44 | Magnetic Resonance Report ---
Exam(s): MRI HEAD W/WO Contrast IV Amt: 5.5cc gadavist EXAM: MR Head Without and With Intravenous Contrast CLINICAL HISTORY: Reason for exam: persistent migraine x 3 weeks. TECHNIQUE: Magnetic resonance images of the head/brain without and with intravenous contrast in multiple planes. CONTRAST: Patient received 5.5cc gadavist of IV contrast COMPARISON: None. FINDINGS: Brain: Small areas of T2 hyperintensity within the deep periventricular white matter suggestive of mild microangiopathic disease. Remainder of the intracranial white and de leon matter is normal. No hemorrhage. No acute infarct. Ventricles: Unremarkable. No ventriculomegaly. Bones/joints: Unremarkable. No acute fracture. Soft tissues: Unremarkable. Normal enhancement following contrast administration. Sinuses: Unremarkable as visualized. No acute sinusitis. Mastoid air cells: Unremarkable as visualized. No mastoid effusion. Orbits: Unremarkable as visualized. IMPRESSION: 1. Mild microangiopathic white matter changes with no acute stroke or intracranial hemorrhage. 2. No intracranial enhancing lesions seen. Electronically signed by: Bonita Masters MD 10/08/23 01:43 AM
[2023-10-08] MEDS: LEVOTHYROXINE SODIUM 175 MCG TABLET PO SCH (05:48)
[2023-10-08 08:11] LABS: Hematocrit (blood only) 32.2 % (37.0-47.0); Hemoglobin 9.6 g/dl (12.0-16.0); Mean Corpuscular Hemoglobin 23.6 pg (25.0-34.0); Mean Corpuscular Hgb Conc 29.8 g/dL (32.0-36.0); Mean Corpuscular Volume 79.3 fL (80.0-100.0); Mean Platelet Volume 10.3 fL (9.4-12.4); Platelet Count 284 K/uL (130-400); RDW Coefficient of Variation 17.8 % (11.5-14.5); Red Blood Count 4.06 M/uL (4.20-5.40); White Blood Count 5.99 K/ul (4.8-10.8)
[2023-10-08 08:26] LABS: BUN Creatinine Ratio 12.9 (10-20); Calcium 8.7 mg/dl (8.6-10.3); Creatinine Clr Calc Pharmacy 76.6 ml/min; Est GFR (African American) 114.6 ml/min; Est GFR (Non-African American) 98.9 ml/min
[2023-10-08] MEDS: BACLOFEN 10 MG TAB PO SCH (08:49)
[2023-10-08] MEDS: SODIUM CHLORIDE 0.9% 500 ML IV SCH (09:06)
--- NOTE | 2023-10-08 09:09 | Gastrointestinal Consultation ---
Date of Consultation October 08, 2023 Assessment & Plan (1) Abdominal pain: (2) Liver lesion: Plan Patient with ongoing issues with abdominal pain since surgery in 05/2023. she has an extensive history of abdominal surgery. she has endorsed heavy nsaid use. Possible liver abscess seen on imaging. - will set up EGD for today to evaluate pain given heavy nsaid use. - continue with protonix 40mg bid. - to consider MRCP for further evaluation of liver findings. Supervising Physician Co-Signing Physician Notes Agree with BIJAN Rea as above Abd: Soft, tender, ND, +BS Continue current therapy and supportive care Proceed with EGD to evaluate abdominal pain. History of Present Illness Reason for Consultation: liver mass Requesting Physician: Laisha Brown MD Attending Physician: Laisha Brown MD History of Present Illness Patient is a 53 year old female with a past medical history of HTN, depression/anxiety, COPD, DVT/mesenteric ischemia, MT, and TIA who presented to the ED due to abdominal pain. Patient has an extensive history of surgery due to ischemic colitis/mesenteric ischemia and most recently had a SBO 05/2023 requiring ex lap and lysis of adhesions. she tells me that in total she has had 25 abdominal surgeries. She has had issues with abdominal pain since she had her last surgery in May and admits to frequent, daily nsaid use. she tells me that in the days prior to admission she has also had nausea and vomiting. she also has had some heartburn which she uses nexum for as an outpatient which did help. During evaluation she had CT imaging showing ill defined hypodense collection in posterior aspect of the liver questioning an abscess or biliary injury. Patient tells me that this is new for her. Surgery had seen the patient and felt abscess was less likely as she has no fever and no leukocytosis. she is on ceftriaxone, flagyl, and vanco. Surgery was concerned that her pain may be related to PUD given heavy nsaid use. bowels are at baseline. no blood in stools or melena that she notes. she tells me she has had egd and colonoscopy in the past in [facility] but that these were relatively unremarkable. Allergies Allergy/AdvReac Type Severity Reaction Status Date / Time amoxicillin Allergy Severe HIVES, Verified 10/06/23 19:42 THROAT SWELLS Penicillins Allergy Severe Hives, Verified 10/06/23 19:42 throat swells shit acetaminophen [From Tylenol] AdvReac Intermediate N/V, Verified 10/06/23 19:42 "MAKES MY LIVER COUNT GO UP" fentanyl AdvReac Intermediate WITH HIGH Verified 10/06/23 19:42 DOSES - Hallucinations codeine AdvReac Mild Nausea Verified 10/06/23 19:42 Home Medications Medication Instructions Recorded Confirmed Type albuterol sulfate 90 mcg/actuation 1 inh inhalation QID PRN ASTHMA, 05/08/23 10/06/23 Rx aerosol inhaler (ProAir HFA) COPD #6.7 grams atorvastatin 40 mg tablet 40 mg PO QPM #90 tabs 05/08/23 10/06/23 Rx budesonide-formoterol HFA 160 2 puff inhalation BID #3 Inhalers 05/08/23 10/06/23 Rx mcg-4.5 mcg/actuation aerosol inhaler (Symbicort) escitalopram oxalate 10 mg tablet 10 mg PO DAILY #90 tabs 05/08/23 10/06/23 Rx esomeprazole magnesium 40 mg 40 mg PO BID #180 caps 05/08/23 10/06/23 Rx capsule,delayed release (Nexium) loperamide 2 mg capsule 2 mg PO Q6H PRN loose stool #270 05/08/23 10/06/23 Rx caps metoprolol succinate 50 mg 50 mg PO QPM #90 tabs 05/08/23 10/06/23 Rx tablet,extended release 24 hr nitroglycerin 0.4 mg sublingual 0.4 mg sublingual Q5M PRN chest 05/08/23 10/06/23 Rx tablet pain #25 tabs tiotropium bromide 2.5 2 puff inhalation DAILY #3 Inhalers 05/08/23 10/06/23 Rx mcg/actuation mist for inhalation (Spiriva Respimat) levothyroxine 150 mcg tablet 150 mcg PO DAILY #90 tabs 07/29/23 10/06/23 Rx buspirone 15 mg tablet 15 mg PO Q6H PRN anxiety #90 tabs 08/22/23 10/06/23 Rx potassium gluconate 500 mg (83 mg) 0 mg PO DAILY 10/06/23 10/06/23 History tablet Patient History Medical History Hypertension History of colon polyps History of renal failure Kidney cysts Liver cyst Crohn's disease ? - UNDETERMINED History of diverticulitis Acid reflux Degenerative disc disease, lumbar Bulging discs "SLIPPED DISCS C 5, 6 &7" - FULL ROM Depression Anxiety Arthritis History of thyroid disease "OVERACTIVE" 1995 - HX RADIATION History of blood clots 2012, PT HAD BLOOD CLOT FROM PT HEART DOWN TO BOWELS. MEDICALLY INDUCED COMA/[facility] History of COVID-19 PER PT - PROBABLE - HAD PHONE EVAL WITH PRACTITIONER - NO TEST FOR MAY 2020 COPD (chronic obstructive pulmonary disease) Asthma CONTROLLED History of anesthesia reaction WHEN WAKING UP - IF SOMETHING IS ON FACE WILL PULL AT IT - HX PULLING OUT TUBES Mini stroke 2012 WHILE IN MEDICALLY INDUCED COMA Acute myocardial infarction 2012 MILD [place] WHILE IN MEDICALLY INDUCED COMA Tachycardia Surgical History H/O exploratory laparotomy 07/2023 @[facility] with lysis of adhesions. S/P scar revision (~10/18/20) abdominal scar revision with umbilicoplasty - Dr. Stewart History of endoscopy History of colonoscopy History of surgical procedure Pt states having 16 surgeries since 2012 due to a blood clot that dropped from pt's heart to bowels. SURGERIES INCLUDE ILEOSTOMY, ATTEMPTED REVERSAL, AND REVERSAL History of cholecystectomy History of hysterectomy History of removal of ovarian cyst History of appendectomy Stented coronary artery TACHYCARDIA...07/2012 stent placed in right artery of heart , ANGIOPLASTY 2 PLACES Family History Mother Breast cancer Grandmother (Paternal) Breast cancer Cancer breast cancer, unknown cancer, and brain cancer Grandmother (Maternal) Breast cancer Family history of diabetes mellitus Aunt Cancer Grandfather (Maternal) Myocardial infarction Denies family history of Ovarian cancer Prostate cancer Colorectal cancer Social History Smoking Status: Current every day smoker Tobacco Type: Cigarettes packs per day: 0.5; Do You Dip or Chew Tobacco: No; Hx Alcohol Use: No Hx Substance Use: No Preferred Language: Thai Communication Ability: Effective Inspector Ball Points Required: No Beliefs That Will Affect Care: None marital status: Single Current Living Situation: Spouse Current Living Situation Comment: home with current occupational status: disabled How many Children do You have: 3 Other Information That Helps Us Care for You: No Feels Safe at Home: Yes Safety Concerns: Feels Safe At This Time caffeine: Yes Dental Care, Regularly: Yes Physical Activity Frequency: Daily Physical Activity Frequency Comment: housewor and walking the dogs daily Seatbelt Use: always Sunscreen Use: Yes Assistive Devices: Walker Review of Systems Review of Systems: All systems reviewed & are unremarkable except as noted in HPI & below Physical Exam Constitutional: WD/WN, vitals as above Respiratory: normal respiratory effort, lungs clear to auscultation Cardiovascular: RRR, no murmur, no edema Gastrointestinal (Abdomen): midline scar, diffuse tenderness, no guarding, soft. normal bowel sounds. Psychiatric: Orientation: alert and oriented x 3 Affect: euthymic affect Results & Data Vital Signs (Past 12 Hours) Vital Signs Temp Pulse Resp BP Pulse Ox O2 Del Method 10/08/23 07:43 98.2 F 63 16 119/73 96 Room Air Coding Level of Care Code 38723 IN/OBS CONSULT LVL 4,60M Diagnoses Abdominal pain R10.84 Abdominal location: generalized Liver lesion K76.9 (1) Abdominal pain Abdominal location: generalized Qualified Code(s): R10.84 - Generalized abdominal pain
--- NOTE | 2023-10-08 09:23 | Pain Management Consultation ---
Date of Consultation October 08, 2023 Assessment & Plan (1) Abdominal pain: Abdominal location: generalized Qualified Code(s): R10.84 - Generalized abdominal pain (2) Post-operative pain: (3) Abscess of liver: (4) Anxiety: Plan 1. Patient will continue to follow GI with plan for EGD later today. There is also further investigation occurring regarding the liver finding with review of prior imaging with consideration of further workup. She remains on antibiotic therapy although underlying infection appears to be unlikely per discussion with hospitalist. Her current abdominal pain appears to be abdominal wall/musculoskeletal in nature. We will tentatively plan to pursue abdominal wall trigger point injections tomorrow pending outcome of EGD and further investigation of the liver finding. 2. Recommended trial of baclofen 5 mg 3 times daily with consideration of titration to 10 mg 3 times daily pending tolerability 3. Consider of use of Cymbalta in place of Lexapro in an attempt to further impact chronic abdominal pain We did briefly discuss a trial of nortriptyline but she reports prior utilization with minimal benefit. 4. Would recommend limiting opiate utilization 5. Pain service will continue to follow. Thank you for allowing us to participate in the care of Mrs. hC. History of Present Illness Reason for Consultation: Acute on chronic abdominal pain Requesting Physician: Margo Lebron PA-C Attending Physician: Laisha Brown MD History of Present Illness Mrs. Ch is a 53-year-old white female who was admitted due to acute on chronic abdominal pain. Patient has history of multiple abdominal surgeries (approximately 25 per her report) most recently approximately 4 months ago with small bowel obstruction requiring exploratory laparotomy and lysis of adhesions ([facility] in [facility] Patient required a large midline incision after this procedure and has continued with bilateral abdominal pain since that time which has been fluctuating in severity. Patient has history of ischemic colitis with subtotal colectomy, ileostomy, ileostomy reversal along with hysterectomy, cholecystectomy, intra-abdominal abscess requiring drainage and multiple lysis of adhesions procedures. Patient reports her abdominal pain is constant described as sharp, burning and squeezing in characteristic. She has less pain while sitting or lying supine. Her pain is aggravated with movement. Pain is bilateral in the mid lateral umbilical regions with some radiation towards the lower quadrants. She reports minimal midepigastric tenderness and denies suprapubic tenderness. She denies any radiation from the thoracic or lumbar spinal regions. She denies any lumbar radicular pattern of pain. She denies pain in the perineal, vaginal or perirectal location. She denies change in her abdominal pain with dietary intake. She rates her pain a 3-4/10 at its best and 7-8/10 at its worst. She is planned for EGD later today. There is also a notable finding on prior imaging of liver mass/abscess with plans for surgical service to further review her most recent CT in July and consideration of MRCP. Patient reports prior treatments have included muscle relaxers, nortriptyline, gabapentin and opiate therapy. She reported minimal relief from these prior treatment although did find some benefit from muscle relaxer therapy. Patient denies dysuria, hematochezia, melena, diarrhea or margarita red blood per rectum. Patient has no further constitutional complaints. Plan of care discussed with Dr. Laila Garcia. Allergies Allergy/AdvReac Type Severity Reaction Status Date / Time amoxicillin Allergy Severe HIVES, Verified 10/06/23 19:42 THROAT SWELLS Penicillins Allergy Severe Hives, Verified 10/06/23 19:42 throat swells shit acetaminophen [From Tylenol] AdvReac Intermediate N/V, Verified 10/06/23 19:42 "MAKES MY LIVER COUNT GO UP" fentanyl AdvReac Intermediate WITH HIGH Verified 10/06/23 19:42 DOSES - Hallucinations codeine AdvReac Mild Nausea Verified 10/06/23 19:42 Home Medications Medication Instructions Recorded Confirmed Type albuterol sulfate 90 mcg/actuation 1 inh inhalation QID PRN ASTHMA, 05/08/23 10/06/23 Rx aerosol inhaler (ProAir HFA) COPD #6.7 grams atorvastatin 40 mg tablet 40 mg PO QPM #90 tabs 05/08/23 10/06/23 Rx budesonide-formoterol HFA 160 2 puff inhalation BID #3 Inhalers 05/08/23 10/06/23 Rx mcg-4.5 mcg/actuation aerosol inhaler (Symbicort) escitalopram oxalate 10 mg tablet 10 mg PO DAILY #90 tabs 05/08/23 10/06/23 Rx esomeprazole magnesium 40 mg 40 mg PO BID #180 caps 05/08/23 10/06/23 Rx capsule,delayed release (Nexium) loperamide 2 mg capsule 2 mg PO Q6H PRN loose stool #270 05/08/23 10/06/23 Rx caps metoprolol succinate 50 mg 50 mg PO QPM #90 tabs 05/08/23 10/06/23 Rx tablet,extended release 24 hr nitroglycerin 0.4 mg sublingual 0.4 mg sublingual Q5M PRN chest 05/08/23 10/06/23 Rx tablet pain #25 tabs tiotropium bromide 2.5 2 puff inhalation DAILY #3 Inhalers 05/08/23 10/06/23 Rx mcg/actuation mist for inhalation (Spiriva Respimat) levothyroxine 150 mcg tablet 150 mcg PO DAILY #90 tabs 07/29/23 10/06/23 Rx buspirone 15 mg tablet 15 mg PO Q6H PRN anxiety #90 tabs 08/22/23 10/06/23 Rx potassium gluconate 500 mg (83 mg) 0 mg PO DAILY 10/06/23 10/06/23 History tablet Patient History Medical History Hypertension History of colon polyps History of renal failure Kidney cysts Liver cyst Crohn's disease ? - UNDETERMINED History of diverticulitis Acid reflux Degenerative disc disease, lumbar Bulging discs "SLIPPED DISCS C 5, 6 &7" - FULL ROM Depression Anxiety Arthritis History of thyroid disease "OVERACTIVE" 1995 - HX RADIATION History of blood clots 2012, PT HAD BLOOD CLOT FROM PT HEART DOWN TO BOWELS. MEDICALLY INDUCED COMA/[facility] History of COVID-19 PER PT - PROBABLE - HAD PHONE EVAL WITH PRACTITIONER - NO TEST FOR MAY 2020 COPD (chronic obstructive pulmonary disease) Asthma CONTROLLED History of anesthesia reaction WHEN WAKING UP - IF SOMETHING IS ON FACE WILL PULL AT IT - HX PULLING OUT TUBES Mini stroke 2012 WHILE IN MEDICALLY INDUCED COMA Acute myocardial infarction 2012 MILD [place] WHILE IN MEDICALLY INDUCED COMA Tachycardia Surgical History H/O exploratory laparotomy 07/2023 @[facility] with lysis of adhesions. S/P scar revision (~10/18/20) abdominal scar revision with umbilicoplasty - Dr. Stewart History of endoscopy History of colonoscopy History of surgical procedure Pt states having 16 surgeries since 2012 due to a blood clot that dropped from pt's heart to bowels. SURGERIES INCLUDE ILEOSTOMY, ATTEMPTED REVERSAL, AND REVERSAL History of cholecystectomy History of hysterectomy History of removal of ovarian cyst History of appendectomy Stented coronary artery TACHYCARDIA...07/2012 stent placed in right artery of heart , ANGIOPLASTY 2 PLACES Family History Mother Breast cancer Grandmother (Paternal) Breast cancer Cancer breast cancer, unknown cancer, and brain cancer Grandmother (Maternal) Breast cancer Family history of diabetes mellitus Aunt Cancer Grandfather (Maternal) Myocardial infarction Denies family history of Ovarian cancer Prostate cancer Colorectal cancer Social History Smoking Status: Current every day smoker Tobacco Type: Cigarettes packs per day: 0.5; Do You Dip or Chew Tobacco: No; Hx Alcohol Use: No Hx Substance Use: No Preferred Language: Slovak Communication Ability: Effective Graphic Arts Instructor Required: No Beliefs That Will Affect Care: None marital status: Single Current Living Situation: Spouse Current Living Situation Comment: home with current occupational status: disabled How many Children do You have: 3 Other Information That Helps Us Care for You: No Feels Safe at Home: Yes Safety Concerns: Feels Safe At This Time caffeine: Yes Dental Care, Regularly: Yes Physical Activity Frequency: Daily Physical Activity Frequency Comment: housewor and walking the dogs daily Seatbelt Use: always Sunscreen Use: Yes Assistive Devices: Walker Physical Exam Physical Exam: General: Patient was walking the halls in no acute distress. Speech and thought process appropriate. Mood and affect appropriate. Cognition intact. Head: Normocephalic and atraumatic. ENT: No evidence of nasal or oral mucosal lesions. Mucous membranes are moist. Eyes: Pupils equal round reactive to light. Neck: Supple without adenopathy and full range of motion. Chest: Nontender to palpation of the costosternal junction. Abdomen: Soft and nondistended. No organomegaly. Bowel sounds active. Multiple well-healed abdominal wall incisions with a large midline incision extending from the midepigastric through the suprapubic location. Patient is generally tender in the mid abdomen bilaterally without rebound or guarding. There is no suprapubic tenderness. Minimal midepigastric tenderness appreciated. Increased abdominal pain was appreciated with resisted sit up maneuvering and hip flexion. Back/spine: Loss of lordosis. Nontender to palpation percussion of the thora columbar spine. Lower extremities: SLR negative bilaterally. Strength testing 5/5 and equal. Increased abdominal pain with resisted hip flexion maneuvering bilaterally. Neurologic: Cranial nerves grossly intact. Ambulatory function normal. Results (Pain Clinic) Diagnostic Review CT Findings: [place], [place] [phone] CT Scan Report Patient: ALICIA CH Admit Date: 10/06/23 MR#: [id number] Address1: [address] [place] [address] Acct ID:[id number] Address2: Date: 1970 [facility] Zip: [place] [id number] Age: 53 Location: ED Sex: F Room/Bed: Att Phy: Diagnosis: ABDOMINAL PAIN Luz Maria Phy: Nory Avila CRNP Service Date: 10/06/23 Fam Phy: Interpreting Phy: Domingo Perry MDAdmit Phy: Ordering Phy: Fran Leo DO cc: ~ CT abd pelvis IV con only CLINICAL HISTORY: post op pain TECHNIQUE: Helical axial images of the abdomen and pelvis were obtained and displayed. Automated dose lowering techniques and/or adjustment according to patient size were utilized for this exam. This exam was performed with intravenous contrast. CT DOSE: 415.05 mGy.cm COMPARISON: None available at the time of this dictation. FINDINGS: Lower chest: Bronchial wall thickening and emphysematous changes Liver: Irregular hypodensity in the posterior aspect of the liver measures up to 27 x 20 mm in greatest transverse dimension. It extends superiorly along the posterior hepatic capsule. Hypodensities in the liver are too small to characterize but may represent cysts. Gallbladder and biliary tree: Patient is status post cholecystectomy. A small amount of pneumobilia is noted. Pancreas: Unremarkable, no focal lesions. Spleen: Calcifications are noted in the spleen compatible with prior granulomato us disease. Adrenals: Unremarkable. Kidneys and ureters: Renal cysts are seen. Bladder: Unremarkable. Reproductive organs: Patient is status post hysterectomy. Bowel: Patient is status post partial colectomy. There is narrowing of the bowel at the distal anastomosis without evidence of obstruction. Lymph nodes Retroperitoneal: Subcentimeter lymph nodes are noted. Pelvic: Unremarkable. Mesenteric: Unremarkable. Peritoneum: Normal. Vessels: Atherosclerotic calcifications are seen. Abdominal wall: Soft tissue thickening is seen about the midline which may represent postsurgical change. Bones: Unremarkable. IMPRESSION: 1. There is a ill-defined hypodense collection in the posterior aspect of the liver. This may represent a hepatic abscess versus less likely bile duct injury. 2. Small amount of pneumobilia which may represent sphincter of Jaleel dysfunction. 3. Postsurgical changes of bowel resection. There is narrowing of the bowel at the distal anastomosis, however no bowel obstruction is seen. No intraperitoneal fluid collections. ACT 112: Negative or not required by law. Electronically signed by: Domingo Perry M.D. 10/06/2023 7:18 PM Dictated: 10/06/231906 Transcribed: 10/06/231906
--- NOTE | 2023-10-08 10:24 | Anesthesiology Progress Note ---
Date of Service October 08, 2023 Anesthesia Post Procedure Vital Signs Vital Signs: Temp Pulse Resp BP Pulse Ox O2 Del Method 10/08/23 10:07 64 16 117/66 96 Room Air 10/08/23 09:02 36.3 C L 65 16 149/86 H 98 Room Air 10/08/23 07:43 36.8 C 63 16 119/73 96 Room Air 10/07/23 20:25 36.8 C 65 16 124/75 97 Room Air 10/07/23 14:37 36.5 C 86 16 134/79 97 Room Air Pain Intensity Abdomen: Pain Intensity: 9 Transfer of Care Handoff Completed per policy Notes Mental Status: alert / awake / arousable and participated in evaluation Patient Amnestic to Procedure: Yes Nausea / Vomiting: adequately controlled Pain: adequately controlled Airway Patency, RR, SpO2: stable & adequate BP & HR: stable & adequate Hydration State: stable & adequate Anesthetic Complications: no major complications apparent
--- NOTE | 2023-10-08 10:27 | GI REPORT ---
Patient Name: Vonda Cherry Procedure Date: 10/08/2023 9:04 AM Date of : 1970 Admit Type: Inpatient Age: 53 Gender: Female Attending MD: Boston Lim DO, Procedure: Upper GI endoscopy Providers: Boston Lim DO Referring MD: Laisha Brown Md Indications: Epigastric abdominal pain Medicines: Monitored Anesthesia Care Complications: No immediate complications. Estimated Blood Loss: Estimated blood loss: none. Procedure: Pre-Anesthesia Assessment: - Prior to the procedure, a History and Physical was performed, and patient medications and allergies were reviewed. The patient's tolerance of previous anesthesia was also reviewed. The risks and benefits of the procedure and the sedation options and risks were discussed with the patient. All questions were answered, and informed consent was obtained. Prior Anticoagulants: The patient has taken Lovenox (enoxaparin), last dose was day of procedure. ASA Grade Assessment: III - A patient with severe systemic disease. After reviewing the risks and benefits, the patient was deemed in satisfactory condition to undergo the procedure. After obtaining informed consent, the endoscope was passed under direct vision. Throughout the procedure, the patient's blood pressure, pulse, and oxygen saturations were monitored continuously. The Endoscope was introduced through the mouth, and advanced to the second part of duodenum. The upper GI endoscopy was accomplished without difficulty. The patient tolerated the procedure well. Findings: The esophagus was normal. Localized mild inflammation characterized by erosions was found in the gastric antrum. Biopsies were taken with a cold forceps for histology. The examined duodenum was normal. Biopsies for histology were taken with a cold forceps for evaluation of celiac disease. Impression: - Normal esophagus. - Gastritis. Biopsied. - Normal examined duodenum. Biopsied. Recommendation: - [facility]. - Resume previous diet. - Continue present medications. - Await pathology results. Boston Lim DO 10/08/2023 10:26:53 AM This report has been signed electronically. Note Initiated On: 10/08/2023 9:04 AM Number of Addenda: 0 I attest to the content of the Intraoperative Record and orders documented therein, exceptions below {[id number]}
[2023-10-08] MEDS: PROPOFOL IV EMULSION 10 MG/ML 20 ML VIAL IV ONE (10:42)
[2023-10-08] MEDS: KETAMINE HCL INJ 50 MG/ML 10 ML VIAL ONE (10:42)
[2023-10-08] MEDS: LIDOCAINE 2% 2 ML VIAL/AMP(20MG/ML) INFIL ONE (10:42)
--- NOTE | 2023-10-08 10:43 | Anesthesiology Consultation ---
Date of Service October 08, 2023 Assessment & Plan Chart Review Chart Review: Acceptable Risk for Surgery Consults Requested none History Surgery Operation Date: 10/08/23 16:30 Proposed Procedures p Esophagogastroduodenoscopy Dr Lim - [place] Lim, DO Height/Weight Height: 5 ft 1 in Weight: 58.8 kg Allergies Allergy/AdvReac Type Severity Reaction Status Date / Time amoxicillin Allergy Severe HIVES, Verified 10/06/23 19:42 THROAT SWELLS Penicillins Allergy Severe Hives, Verified 10/06/23 19:42 throat swells shit acetaminophen [From Tylenol] AdvReac Intermediate N/V, Verified 10/06/23 19:42 "MAKES MY LIVER COUNT GO UP" fentanyl AdvReac Intermediate WITH HIGH Verified 10/06/23 19:42 DOSES - Hallucinations codeine AdvReac Mild Nausea Verified 10/06/23 19:42 Medications Home Medications Medication Instructions Recorded Confirmed Last Taken albuterol sulfate 90 mcg/actuation 1 inh inhalation QID PRN ASTHMA, 05/08/23 10/06/23 Unknown aerosol inhaler (ProAir HFA) COPD #6.7 grams atorvastatin 40 mg tablet 40 mg PO QPM #90 tabs 05/08/23 10/06/23 10/05/23 budesonide-formoterol HFA 160 2 puff inhalation BID #3 Inhalers 05/08/23 10/06/23 10/06/23 08:00 mcg-4.5 mcg/actuation aerosol inhaler (Symbicort) escitalopram oxalate 10 mg tablet 10 mg PO DAILY #90 tabs 05/08/23 10/06/23 10/06/23 esomeprazole magnesium 40 mg 40 mg PO BID #180 caps 05/08/23 10/06/23 10/06/23 08:00 capsule,delayed release (Nexium) loperamide 2 mg capsule 2 mg PO Q6H PRN loose stool #270 05/08/23 10/06/23 Unknown caps metoprolol succinate 50 mg 50 mg PO QPM #90 tabs 05/08/23 10/06/23 10/05/23 tablet,extended release 24 hr nitroglycerin 0.4 mg sublingual 0.4 mg sublingual Q5M PRN chest 05/08/23 10/06/23 Unknown tablet pain #25 tabs tiotropium bromide 2.5 2 puff inhalation DAILY #3 Inhalers 05/08/23 10/06/23 10/06/23 mcg/actuation mist for inhalation (Spiriva Respimat) levothyroxine 150 mcg tablet 150 mcg PO DAILY #90 tabs 07/29/23 10/06/23 10/06/23 buspirone 15 mg tablet 15 mg PO Q6H PRN anxiety #90 tabs 08/22/23 10/06/23 Unknown potassium gluconate 500 mg (83 mg) 0 mg PO DAILY 10/06/23 10/06/23 10/06/23 tablet Active Medications Generic Name Dose Route Start Last Admin Trade Name Freq PRN Reason Stop Dose Admin Atorvastatin Calcium 40 mg 10/07/23 21:00 10/07/23 20:48 Atorvastatin 40 Mg Tab PO 11/06/23 20:59 40 mg QPM CINTHIA Administration Baclofen 5 mg 10/08/23 09:00 10/08/23 08:49 Baclofen 10 Mg Tab PO 11/07/23 08:59 5 mg Q12H CINTHIA Administration Enoxaparin Sodium 40 mg 10/07/23 09:00 10/08/23 07:12 Enoxaparin Inj 40 Mg/0.4 Ml Syr SQ 11/06/23 08:59 40 mg QAM CINTHIA Administration Escitalopram Oxalate 10 mg 10/07/23 09:00 10/08/23 07:16 Escitalopram Oxalate 10 Mg Tab PO 11/06/23 08:59 10 mg DAILY CINTHIA Administration Fluticasone/Vilanterol 1 puffs 10/07/23 09:00 10/08/23 07:11 Fluticasone/Vilanterol 100/25mcg 14 Puffs/Inhaler INH 11/06/23 08:59 1 puffs DAILY CINTHIA Administration Hydromorphone HCl 0.25 mg 10/06/23 22:45 10/08/23 04:04 Hydromorphone Inj 0.5 Mg/0.5 Ml Syr IV 10/20/23 22:44 0.25 mg Q6H PRN Administration Pain Cefepime HCl 2,000 mg/ Syringe 20 mls @ 5 mls/min 10/07/23 10:00 10/07/23 22:23 IV 10/17/23 09:59 5 mls/min Q12H CINTHIA Administration Protocol Metronidazole 500 mg in 100 mls @ 100 mls/hr 10/07/23 04:00 10/08/23 05:47 Flagyl IV 10/17/23 03:59 Infused Q8H CINTHIA Infusion Protocol Vancomycin HCl 1,000 mg/ 270 mls @ 200 mls/hr 10/07/23 06:00 10/08/23 07:11 Sodium Chloride IV 10/17/23 05:59 Infused Q12H CINTHIA Infusion Pantoprazole Sodium 40 mg/ 10 mls @ 5 mls/min 10/07/23 21:00 10/08/23 07:12 Syringe IV 11/06/23 20:59 5 mls/min BID CINTHIA Administration Sodium Chloride 500 mls @ 15 mls/hr 10/08/23 09:00 10/08/23 09:12 Nss IV 11/07/23 08:59 Infused .Q24H CINTHIA Infusion Ibuprofen 600 mg 10/06/23 22:45 10/08/23 07:18 Ibuprofen 600 Mg Tab PO 11/05/23 22:44 600 mg Q8H PRN Administration Pain Levothyroxine Sodium 175 mcg 10/08/23 06:30 10/08/23 05:48 Levothyroxine Sodium 175 Mcg Tablet PO 11/07/23 06:29 175 mcg DAILYBB CINTHIA Administration Melatonin 3 mg 10/06/23 21:34 10/06/23 23:17 Melatonin 3 Mg Tab PO 11/05/23 21:33 3 mg HS PRN Administration Insomnia Metoprolol Succinate 50 mg 10/07/23 21:00 10/07/23 20:48 Metoprolol Succ 50mg Ext Rel Tab PO 11/06/23 20:59 50 mg QPM CINTHIA Administration Ondansetron HCl 4 mg 10/06/23 21:34 10/07/23 02:20 Ondansetron Inj 2 Mg/Ml 2 Ml Vial IV 11/05/23 21:33 4 mg Q6H PRN Administration Nausea Umeclidinium [place] 1 puffs 10/07/23 09:00 10/08/23 07:11 Umeclidinium [place] 62.5mcg/Blister 7 Puffs/Inhaler INH 11/06/23 08:59 1 puffs DAILY CINTHIA Administration NPO Date Last Intake of Fluids: 10/08/23 Time Last Intake of Fluids: 06:30 Last Intake of Fluids Comment: sip Date Last Intake of Solids: 10/07/23 Time Last Intake of Solids: 07:00 Past Medical History Medical History Hypertension History of colon polyps History of renal failure Kidney cysts Liver cyst Crohn's disease ? - UNDETERMINED History of diverticulitis Acid reflux Degenerative disc disease, lumbar Bulging discs "SLIPPED DISCS C 5, 6 &7" - FULL ROM Depression Anxiety Arthritis History of thyroid disease "OVERACTIVE" 1995 - HX RADIATION History of blood clots 2012, PT HAD BLOOD CLOT FROM PT HEART DOWN TO BOWELS. MEDICALLY INDUCED COMA/[facility] History of COVID-19 PER PT - PROBABLE - HAD PHONE EVAL WITH PRACTITIONER - NO TEST FOR MAY 2020 COPD (chronic obstructive pulmonary disease) Asthma CONTROLLED History of anesthesia reaction WHEN WAKING UP - IF SOMETHING IS ON FACE WILL PULL AT IT - HX PULLING OUT TUBES Mini stroke 2012 WHILE IN MEDICALLY INDUCED COMA Acute myocardial infarction [address] WHILE IN MEDICALLY INDUCED COMA Tachycardia Past Family History Family History Mother Breast cancer Grandmother (Paternal) Breast cancer Cancer breast cancer, unknown cancer, and brain cancer Grandmother (Maternal) Breast cancer Family history of diabetes mellitus Aunt Cancer Grandfather (Maternal) Myocardial infarction Denies family history of Ovarian cancer Prostate cancer Colorectal cancer Past Surgical History Surgical History H/O exploratory laparotomy 07/2023 @[facility] with lysis of adhesions. S/P scar revision (~10/18/20) abdominal scar revision with umbilicoplasty - Dr. Stewart History of endoscopy History of colonoscopy History of surgical procedure Pt states having 16 surgeries since 2012 due to a blood clot that dropped from pt's heart to bowels. SURGERIES INCLUDE ILEOSTOMY, ATTEMPTED REVERSAL, AND REVERSAL History of cholecystectomy History of hysterectomy History of removal of ovarian cyst History of appendectomy Stented coronary artery TACHYCARDIA...07/2012 stent placed in right artery of heart , ANGIOPLASTY 2 PLACES Social History Smoking Status: Current every day smoker tobacco type: cigarettes Do You Dip or Chew Tobacco: No Hx Alcohol Use: No Hx Substance Use: No substance use type: does not use Physical Exam Vital Signs Last Vital Signs Temp 36.4 C L 10/08/23 10:41 Pulse 68 10/08/23 10:41 Resp 18 10/08/23 10:41 BP 165/89 H 10/08/23 10:41 Pulse Ox 98 10/08/23 10:41 O2 Del Method Room Air 10/08/23 10:41 Testing Laboratory Results 10/08/23 06:52 10/08/23 06:52 Urine Color Yellow 10/06/23 20:59 Urine Appearance Clear (Clear) 10/06/23 20:59 Urine pH 5.5 (4.5-7.5) 10/06/23 20:59 Ur Specific Ariton > 1.045 (1.000-1.030) H 10/06/23 20:59 Urine Protein Negative (Negative) 10/06/23 20:59 Urine Glucose (UA) Negative (Negative) 10/06/23 20:59 Urine Ketones Negative (Negative) 10/06/23 20:59 Urine Nitrite Negative (Negative) 10/06/23 20:59 Ur Leukocyte Esterase Negative (Negative) 10/06/23 20:59 10/06/23 20:29 Aerobic Blood Culture - Preliminary Blood No growth in Aerobic bottle after 24 hours. Anaerobic Blood Culture - Preliminary No growth in Anaerobic bottle after 24 hours. 10/06/23 20:24 Aerobic Blood Culture - Preliminary Blood No growth in Aerobic bottle after 24 hours. Anaerobic Blood Culture - Preliminary No growth in Anaerobic bottle after 24 hours.
--- NOTE | 2023-10-08 13:48 | Pharmacy Report ---
Pharmacy PK ABX Note - Date of Service October 08, 2023 - Assessment and Plan Assessment 53 year old F started on broad spectrum antibiotics - vancomycin, cefepime, and metronidazole for concern of intra-abdominal infection/liver abscess (as seen on abd/pelvis CT). PMHx significant for SBO 05/2023 requiring ex lap and lysis of adhesions. Since this procedure, patient reporting abdominal pain and drainage now occurring. Previously on 2 courses of doxycycline, however with worsening abdominal pain. Extensive history of abdominal surgeries in the past. Blood cultures x 2 show no growth to date. EGD completed today, shows gastritis. Discussed with hospitalist, plan is to continue empiric antibiotic regimen at this time. Plan Vancomycin * Current regimen: 1000 mg IV every 12 hours * Random level obtained 10/08/23 resulted as 19 mcg/mL. This is predicted to achieve target AUC/MICHELLE of 400-600 mg/L.hr * Predicted AUC at steady state: 563 mg/L.hr * Continue 1000 mg IV every 12 hours * Will repeat level in the next 48-72 hours if therapy is continued and/or change in patient clinical status Pharmacy will continue to follow and will adjust dose/frequency as necessary. Thank you. Pharmacy has transitioned to AUC monitoring for vancomycin. AUC/MICHELLE is the preferred PK/PD target and is associated with decreased risk of nephrotoxicity compared to traditional trough targets.
--- NOTE | 2023-10-08 13:56 | Surgery Progress Note ---
Date of Service October 08, 2023 Assessment & Plan (1) Abdominal pain: (2) Liver lesion: Plan 53 year-old female with history of multiple abdominal surgeries (26 per patient) with most recent surgery being ex lap with extensive lysis of adhesions in July 2023. CT scan here at [facility] showing possible liver abscess of posterior aspect of liver. No bowel obstruction. No pneumoperitoneum. She does have narrowing at the small bowel/rectal anastomosis. She is afebrile and has no leukocytosis. Chronic abdominal pain history previously on narcotics and gabapentin however has not been on in some time and has never seen pain management. Abdominal exam is soft with generalized tenderness and voluntary guarding however no peritonitis. 10/08/2023:\ avss no leukocytosis EGD with gastritis, no ulcer waiting for MRI and outside records no change in pain + hungry Plan: No acute surgical intervention required at this time. Given patients multiple abdominal surgeries and complex surgery history, will obtain CT scan images/reports from [facility] and [facility] as the liver mass/abscess could be chronic findings. Feel abscess less likely as she has no fever and no leukocytosis. Interestingly she did have history of postoperative bile leak in . Possibly dilated CBD on CT scan at [facility] 05/2023 per discharge summary from her [facility] in July 2023. Continue abx for now Continue medical management okay for diet from surgical standpoint once MRI completed Discussed with Dr. Elena who agrees with above. Admission and Anticipated Discharge Date Admission Date: October 08, 2023 Supervising Physician Co-Signing Physician Notes I have seen and examined the patient personally and agree with the above assessment and plan. EGD demonstrates gastritis with no ulcers. She is awaiting an MRI/MRCP. There continues to be no surgical indication at this time. Okay for diet once MRI is complete. Subjective no change in pain, not better not worse had EGD today, showed gastritis no ulcer waiting for MRI of abdomen hungry no fevers or chills passing gas and small bowel movement no n,v Physical Exam Constitutional: WD/WN, vitals as above cooperative and comfortable; no acute distress and not ill appearing Gastrointestinal (Abdomen): Inspection/Auscultation: abdomen normal to inspection and + abdominal surgical scar (midline laparotomy scar); abdomen not distended Percussion/Palpation: + abdomen tender (throughout abdomen), + guarding (voluntary throughout abdomen) and abdomen soft; abdomen not rigid and abdomen not firm Psychiatric: A+Ox3, euthymic affect Results & Data Vital Signs (Past 12 Hours) Vital Signs Temp Pulse Resp BP Pulse Ox O2 Del Method 10/08/23 10:41 36.4 C L 68 18 165/89 H 98 Room Air 10/08/23 10:36 67 16 162/98 H 98 Room Air 10/08/23 10:22 60 16 130/75 96 Room Air 10/08/23 10:07 64 16 117/66 96 Room Air 10/08/23 09:02 36.3 C L 65 16 149/86 H 98 Room Air 10/08/23 07:43 36.8 C 63 16 119/73 96 Room Air Laboratory Results 10/08/23 10/08/23 Range/Units 11:53 06:52 WBC 5.99 (4.8-10.8) K/ul RBC 4.06 L (4.20-5.40) M/uL Hgb 9.6 L (12.0-16.0) g/dl Hct 32.2 L (37.0-47.0) % MCV 79.3 L (80.0-100.0) fL MCH 23.6 L (25.0-34.0) pg MCHC 29.8 L (32.0-36.0) g/dL RDW Std Deviation 51.0 H (36.4-46.3) fL RDW Coeff of Ismael 17.8 H (11.5-14.5) % Plt Count 284 (130-400) K/uL MPV 10.3 (9.4-12.4) fL Sodium 139 (136-145) mmol/L Potassium 4.0 (3.5-5.1) mmol/L Chloride 111 H (98-107) mmol/L Carbon Dioxide 24 (21-32) mmol/L Anion Gap 4 (3-11) BUN 9 (6-23) mg/dl Creatinine 0.70 (0.6-1.2) mg/dl Est Cr Clr Drug Dosing 76.6 ml/min Est GFR ( Amer) 114.6 ml/min Est GFR (Non-Af Amer) 98.9 ml/min BUN/Creatinine Ratio 12.9 (10-20) Glucose 97 (70-99(Fasting)) mg/dl Calcium 8.7 (8.6-10.3) mg/dl Random Vancomycin 19.0 (10-20) mcg/ml (1) Abdominal pain Abdominal location: generalized Qualified Code(s): R10.84 - Generalized abdominal pain
--- NOTE | 2023-10-08 16:51 | Hospitalist Progress Note ---
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 Pt most recently had a SBO 05/2023 requiring ex lap and lysis of adhesions. She has had abdominal pain ever since mostly in the mid abdomen but goes down into the right greater than left quadrants She has been taking NSAIDs frequently for 4 months. No melena but is anemic. No nausea or vomiting. 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 CT abdomen/pelvis here with 27 x 20 mm hypodense collection in posterior aspect of liver concerning for possible abscess- no bowel obstruction CBC negative for leukocytosis, CMP WNL, CRP neg, procal neg, lipase neg, and she is afebrile Suspicion for liver abscess seems very low at this point but will continue antibiotics empirically for now with ceftriaxone, Flagyl, vancomycin-if blood cxs negative x 48 hours, will stop antibiotics Obtain old CT scans from outside hospital to see if liver lesion was present previously---> still waiting to receive these Consult surgery for abdominal pain in the setting of numerous abdominal surgeries-no surgical intervention, awaiting old CT scans for comparison Consult GI for EGD for peptic ulcer disease as cause of upper abdominal pain and anemia-EGD 10/07 shows gastritis but no ulcer. Bxs taken to r/o celiac Follow blood cultures-remain NGTD Ibuprofen and IV Dilaudid as needed for pain Continue IV Protonix twice daily for gastritis Check MRI liver--> to help delineate if solid vs liquid Appreciate Pain Management consult--> plan for trigger point injections of abd wall tomorrow, start baclofen 5mg po tid and increase to 10mg tid if tolerates, and possible switch Lexapro to Cymbalta (2) Migraine: Plan: Ongoing most days for the last 3 weeks with a history of migraines in her teenage years. With associated phonophobia and photophobia, nausea, severe right-sided headache Much improved with abortive therapy with IV Reglan and Benadryl together-will give again prn if migraine returns Ibuprofen as needed Checked brain MRI given severe headache persistent for 3 weeks--> negative (3) Liver lesion: Plan: As noted above Unclear if mass or abscess May need biopsy Obtaining old CT scan records Check MRI liver as above (4) Anemia: Plan: hgb low but stable at 9, MCV microcytic check Fe studies Celiac biopsies pending likely Fe def from malabsorption TSH also quite elevated for months-increased LT4 dose Check B12 as well given likely malabsorption and also perhaps B12 def neuropathy as cause of abd pain? (5) COPD with emphysema: Plan: - no acute exacerbation - continue home inhalers (6) Hypertension: Plan: BPs are controlled Continue home metoprolol 50 mg daily (7) Hypothyroidism: Plan: TSH was 45, not rechecked since increasing levothyroxine as an outpatient to 150 mcg daily Check TSH here-still elevated but improved at 25 Increased levothyroxine 175 mcg daily-likely has difficulty with absorption given short gut syndrome Check TSH in 4 weeks (8) Hyperlipidemia: Plan: continue home atorvastatin 40 mg daily (9) CAD (coronary artery disease): Plan: With a history of remote coronary revascularization with PCI/stenting in 2012 as per cardiology notes She is not on aspirin or an antiplatelet as per her medication list but will confirm with her as previous cardiology notes show that she was on aspirin Continue metoprolol and atorvastatin No acute issues (10) Anxiety: Plan: No acute issues Continue home buspirone and escitalopram, with consideration to switch to Cymbalta for neuropathic pain Plan DVT prophylaxis- SCDs, avoid anticoagulation given anemia and pain man injection tomorrow Disposition-continued stay, but possible discharge to home tomorrow after injections if MRI liver ok Admission and Anticipated Discharge Date Admission Date: October 08, 2023 Anticipated date of discharge: 10/09/23 Subjective Pt feeling hungry after EGD and NPO for MRI abdomen. Tried baclofen one dose and no difference thus far but is looking forward to trying the injections with pain management. The reglan and benadryl yesterday took her migraine completely away but does feel it's starting to return slightly today. Physical Exam Constitutional: WD/WN, vitals as above Neck: trachea midline, no thyromegaly Respiratory: normal respiratory effort, lungs clear to auscultation Cardiovascular: RRR, no murmur, no edema Chest (Breasts): Chest: normal inspection of chest Gastrointestinal (Abdomen): Inspection/Auscultation: normal bowel sounds; + abdomen abnormal to inspection (multiple scars all over abdomen including large midline laparotomy scar) and abdomen not distended Percussion/Palpation: + abdomen tender (diffusely with minimal palpation,moreso on right side) and abdomen soft; no guarding Musculoskeletal: Extremities: extremities normal to inspection; no cyanosis and no clubbing Skin: no rashes, warm and dry Neurologic: moves all extremities and awake; no focal motor deficits Psychiatric: A+Ox3, euthymic affect Lymphatic: no lymphedema Results & Data Results & Data Vital Signs (Past 12 Hours) Vital Signs Temp Pulse Resp BP Pulse Ox O2 Del Method 10/08/23 15:07 36.7 C 73 16 129/74 97 Room Air 10/08/23 10:41 36.4 C L 68 18 165/89 H 98 Room Air 10/08/23 10:36 67 16 162/98 H 98 Room Air 10/08/23 10:22 60 16 130/75 96 Room Air 10/08/23 10:07 64 16 117/66 96 Room Air 10/08/23 09:02 36.3 C L 65 16 149/86 H 98 Room Air 10/08/23 07:43 36.8 C 63 16 119/73 96 Room Air Laboratory Results CBC, BMP, blood cxs reviewed Diagnostic Findings MRI brain reviewed PG Care Time/CCT Total # of Minutes Spent Total Time Spent with Patient: Total time spent is greater than 50% in coordination of care (as documented) at patient's floor/unit and/or counseling patient: Coding Level of Care Code 32848 SUB INP/OBS CARE 3/50MIN Diagnoses Abdominal pain R10.84 Abdominal location: generalized Migraine G43.909 Liver lesion K76.9 Anemia D64.9 COPD with emphysema J43.9 Hypertension I10 Hypothyroidism E03.9 Hyperlipidemia E78.5 CAD (coronary artery disease) I25.10 Anxiety F41.9 (1) Abdominal pain Abdominal location: generalized Qualified Code(s): R10.84 - Generalized abdominal pain
[2023-10-08] MEDS: LACTATED RINGER'S 1,000 ML IV SCH (17:50)
[2023-10-08] MEDS: diphenhydrAMINE 50 MG/ML VIAL IV PRN (19:52)
[2023-10-08] MEDS: METOCLOPRAMIDE HCL INJ 5 MG/ML 2 ML VIAL IV PRN (19:52)
[2023-10-08] MEDS: GADOXETATE DISODIUM IV ONE (21:37)
--- NOTE | 2023-10-09 01:09 | Magnetic Resonance Report ---
Exam(s): MRI ABDOMEN W/WO Contrast IV Amt: 10CC EOVIST EXAM: MR Abdomen Without and With Intravenous Contrast CLINICAL HISTORY: assess liver mass. TECHNIQUE: Multiplanar magnetic resonance images of the abdomen without and with intravenous contrast. CONTRAST: Patient received 10CC EOVIST of IV contrast COMPARISON: CT abdomen and pelvis with contrast dated 10/06/2023 FINDINGS: Lung bases: Unremarkable. No mass. No consolidation. Liver: The liver demonstrates similar contours with relative hypertrophy of the left lobe. Scattered subcentimeter hepatic cysts too small to characterize. Subtle heterogeneous enhancement in the left lobe of the liver and along the posterior medial aspect of the right lobe of the liver near the pamela hepatis. No well-defined mass. Gallbladder and bile ducts: Cholecystectomy. The previously reported hypodense area along the posterior margin of the right lobe of the liver is identified, but demonstrates a branching appearance, contiguous with the right intrahepatic biliary radicles, communicating with the common bile duct. The addition, there is a suggestion of a branch off the portal vein serving this area and a potential small caliber right hepatic vein and extending along the superior medial aspect of this region. No calcified stones. Pancreas: Unremarkable. No ductal dilation. No mass. Spleen: Unremarkable. No splenomegaly. Adrenals: Unremarkable. No mass. Kidneys and ureters: Kidneys demonstrate normal enhancement. Cortical cysts are noted bilaterally, with the largest cyst inferiorly on the right measuring 2.3 cm. No complex features. Stomach and bowel: Unremarkable. No obstruction. Intraperitoneal space: Unremarkable. No significant fluid collection. Soft tissues: Unremarkable. Vasculature: The portal vein is tortuous at the pamela hepatis but is patent. Lymph nodes: Unremarkable. No enlarged lymph nodes. Other findings: No abnormal enhancing lesion. IMPRESSION: 1. The previously reported hypodense area along the posterior margin of the right lobe of the liver is identified, but demonstrates a branching appearance, contiguous with the right intrahepatic biliary radicles, communicating with the common bile duct. The addition, there is a suggestion of a branch off the portal vein serving this area and a potential small caliber right hepatic vein and extending along the superior medial aspect of this region. Findings are most consistent with focal atrophy of the posterior right lobe of the liver, rather than a loculated fluid collection or biliary injury, as suspected on the previous examination. Recommend follow-up imaging in 6-12 months to ensure stability over time. Alternatively, nuclear medicine hepatobiliary study may be performed, ideally with SPECT imaging, to confirm concentration of the radiopharmaceutical in the suspected biliary radicles along the posterior aspect of the right lobe of the liver. 2. Heterogeneous enhancement of the liver without a well-defined enhancing mass. Scattered subcentimeter presumed hepatic cysts, too small to accurately characterize. 3. No biliary dilatation. No choledocholithiasis. Status post cholecystectomy. Electronically signed by: Bruce Carrero MD 10/09/23 01:08 AM
[2023-10-09 08:22] LABS: Hematocrit (blood only) 31.7 % (37.0-47.0); Hemoglobin 9.7 g/dl (12.0-16.0); Mean Corpuscular Hemoglobin 23.7 pg (25.0-34.0); Mean Corpuscular Hgb Conc 30.6 g/dL (32.0-36.0); Mean Corpuscular Volume 77.5 fL (80.0-100.0); Mean Platelet Volume 10.3 fL (9.4-12.4); Platelet Count 283 K/uL (130-400); RDW Coefficient of Variation 17.7 % (11.5-14.5); RDW Standard Deviation 49.1 fL (36.4-46.3); Red Blood Count 4.09 M/uL (4.20-5.40); White Blood Count 6.72 K/ul (4.8-10.8)
[2023-10-09 08:36] LABS: Albumin Level 3.4 gm/dl (3.4-5.0); BUN Creatinine Ratio 14.7 (10-20); Bilirubin,Total 0.3 mg/dl (0.2-1.0); Calcium 8.3 mg/dl (8.6-10.3); Creatinine Clr Calc Pharmacy 78.8 ml/min; Est GFR (African American) 115.7 ml/min; Est GFR (Non-African American) 99.9 ml/min; Magnesium 1.8 mg/dl (1.7-2.4); Potassium 4.1 mmol/L (3.5-5.1); Total Protein 5.7 gm/dl (6.0-8.3)
[2023-10-09] MEDS: CYANOCOBALAMIN 1000 MCG/ML VIAL IM ONE (11:24)
[2023-10-09] MEDS: IRON SUCROSE 300 MG in SODIUM CHLORIDE 0.9% 250 ML IV ONE (11:24)
--- NOTE | 2023-10-09 11:31 | Surgery Progress Note ---
Date of Service October 09, 2023 Assessment & Plan (1) Abdominal pain: (2) Liver lesion: Plan 53 year-old female with history of multiple abdominal surgeries (26 per patient) with most recent surgery being ex lap with extensive lysis of adhesions in July 2023. CT scan here at [facility] showing possible liver abscess of posterior aspect of liver. No bowel obstruction. No pneumoperitoneum. She does have narrowing at the small bowel/rectal anastomosis. She is afebrile and has no leukocytosis. Chronic abdominal pain history previously on narcotics and gabapentin however has not been on in some time and has never seen pain management. Abdominal exam is soft with generalized tenderness and voluntary guarding however no peritonitis. 10/09/2023:\ avss no leukocytosis EGD with gastritis, no ulcer chronic abdominal wall pain due to multiple surgeries MRI with findings of focal atrophy of liver and not abscess or bile duct injury Plan: No surgical intervention required at this time. MRI findings of chronic atrophy of liver and no abscess. can discontinue abx our services signing off, please call with questions/concerns. Dr. Elena has seen patient and agrees with above Admission and Anticipated Discharge Date Admission Date: October 08, 2023 Supervising Physician Co-Signing Physician Notes I have seen and examined the patient personally and agree with the above assessment plan. In brief, she is feeling better today. She had pain injections and is in less abdominal pain. She tolerated the diet. We reviewed the MRI findings with her. No surgical intervention required at this time. We will sign off. Please call with questions or concerns. Subjective feeling better this morning tolerated diet without increase in pain has injections by pain management this morning, tolerated well Physical Exam Constitutional: WD/WN, vitals as above cooperative and comfortable; no acute distress and not ill appearing Respiratory: normal respiratory effort; no respiratory distress Skin: no rashes, warm and dry Psychiatric: A+Ox3, euthymic affect Results & Data Vital Signs (Past 12 Hours) Vital Signs Temp Pulse Resp BP BP Pulse Ox O2 Del Method 10/09/23 08:07 37.0 C 66 18 127/74 97 Room Air 10/09/23 02:55 60 112/67 Laboratory Results 10/09/23 10/08/23 Range/Units 08:01 11:53 WBC 6.72 (4.8-10.8) K/ul RBC 4.09 L (4.20-5.40) M/uL Hgb 9.7 L (12.0-16.0) g/dl Hct 31.7 L (37.0-47.0) % MCV 77.5 L (80.0-100.0) fL MCH 23.7 L (25.0-34.0) pg MCHC 30.6 L (32.0-36.0) g/dL RDW Std Deviation 49.1 H (36.4-46.3) fL RDW Coeff of Ismael 17.7 H (11.5-14.5) % Plt Count 283 (130-400) K/uL MPV 10.3 (9.4-12.4) fL Sodium 139 (136-145) mmol/L Potassium 4.1 (3.5-5.1) mmol/L Chloride 111 H (98-107) mmol/L Carbon Dioxide 24 (21-32) mmol/L Anion Gap 4 (3-11) BUN 10 (6-23) mg/dl Creatinine 0.68 (0.6-1.2) mg/dl Est Cr Clr Drug Dosing 78.8 ml/min Est GFR ( Amer) 115.7 ml/min Est GFR (Non-Af Amer) 99.9 ml/min BUN/Creatinine Ratio 14.7 (10-20) Glucose 84 (70-99(Fasting)) mg/dl Calcium 8.3 L (8.6-10.3) mg/dl Magnesium 1.8 (1.7-2.4) mg/dl Iron 24 L (35-150) mcg/dl TIBC 388 (250-450) mcg/dl Unsaturated IBC 364 H (155-355) mcg/dl Transferrin % Sat 6 L (15-50) % Ferritin 4.0 L (8-388) ng/ml Total Bilirubin 0.3 (0.2-1.0) mg/dl Direct Bilirubin 0.0 (0-0.2) mg/dl AST 15 (13-39) U/L ALT 9 (7-52) U/L Alkaline Phosphatase 66 (34-104) U/L Total Protein 5.7 L (6.0-8.3) gm/dl Albumin 3.4 (3.4-5.0) gm/dl Vitamin B12 88 L (180-914) pg/ml Random Vancomycin 19.0 (10-20) mcg/ml Diagnostic Findings Exam(s): MRI ABDOMEN W/WO Contrast IV Amt: 10CC EOVIST EXAM: MR Abdomen Without and With Intravenous Contrast CLINICAL HISTORY: assess liver mass. TECHNIQUE: Multiplanar magnetic resonance images of the abdomen without and with intravenous contrast. CONTRAST: Patient received 10CC EOVIST of IV contrast COMPARISON: CT abdomen and pelvis with contrast dated 10/06/2023 FINDINGS: Lung bases: Unremarkable. No mass. No consolidation. Liver: The liver demonstrates similar contours with relative hypertrophy of the left lobe. Scattered subcentimeter hepatic cysts too small to characterize. Subtle heterogeneous enhancement in the left lobe of the liver and along the posterior medial aspect of the right lobe of the liver near the pamela hepatis. No well-defined mass. Gallbladder and bile ducts: Cholecystectomy. The previously reported hypodense area along the posterior margin of the right lobe of the liver is identified, but demonstrates a branching appearance, contiguous with the right intrahepatic biliary radicles, communicating with the common bile duct. The addition, there is a suggestion of a branch off the portal vein serving this area and a potential small caliber right hepatic vein and extending along the superior medial aspect of this region. No calcified stones. Pancreas: Unremarkable. No ductal dilation. No mass. Spleen: Unremarkable. No splenomegaly. Adrenals: Unremarkable. No mass. Kidneys and ureters: Kidneys demonstrate normal enhancement. Cortical cysts are noted bilaterally, with the largest cyst inferiorly on the right measuring 2.3 cm. No complex features. Stomach and bowel: Unremarkable. No obstruction. Intraperitoneal space: Unremarkable. No significant fluid collection. Soft tissues: Unremarkable. Vasculature: The portal vein is tortuous at the pamela hepatis but is patent. Lymph nodes: Unremarkable. No enlarged lymph nodes. Other findings: No abnormal enhancing lesion. IMPRESSION: 1. The previously reported hypodense area along the posterior margin of the right lobe of the liver is identified, but demonstrates a branching appearance, contiguous with the right intrahepatic biliary radicles, communicating with the common bile duct. The addition, there is a suggestion of a branch off the portal vein serving this area and a potential small caliber right hepatic vein and extending along the superior medial aspect of this region. Findings are most consistent with focal atrophy of the posterior right lobe of the liver, rather than a loculated fluid collection or biliary injury, as suspected on the previous examination. Recommend follow-up imaging in 6-12 months to ensure stability over time. Alternatively, nuclear medicine hepatobiliary study may be performed, ideally with SPECT imaging, to confirm concentration of the radiopharmaceutical in the suspected biliary radicles along the posterior aspect of the right lobe of the liver. 2. Heterogeneous enhancement of the liver without a well-defined enhancing mass. Scattered subcentimeter presumed hepatic cysts, too small to accurately characterize. 3. No biliary dilatation. No choledocholithiasis. Status post cholecystectomy. (1) Abdominal pain Abdominal location: generalized Qualified Code(s): R10.84 - Generalized abdominal pain
--- NOTE | 2023-10-09 12:35 | Pain Management Progress Note ---
Date of Service October 09, 2023 Assessment & Plan (1) Abdominal pain: Abdominal location: generalized Qualified Code(s): R10.84 - Generalized abdominal pain (2) Post-operative pain: (3) Abscess of liver: (4) Anxiety: Plan 1. Abdominal wall trigger point injections were completed at today's visit. Refer to procedure note below. 2. Continue with baclofen 5 mg 3 times daily and consider titration at 10 mg 3 times daily 3. Consider transitioning from Lexapro to duloxetine 4. Pain service will continue to follow status post abdominal wall trigger point injections TRIGGER POINT INJECTION Diagnosis: Myofascial pain with spasm, chronic abdominal wall pain Medications Used: Ropivacaine 0.5% 7 ml Kenalog 1 ml (40 mg/1ml) Ketorolac 2 ml (30 mg/1ml) Side/Level injected: Right external oblique x 2, right rectus abdominis x 3, left rectus abdominis x 3, left external oblique x 2 Prior to starting, the Patients diagnosis and the procedure were reviewed with the patient in detail. Possible risks and complications including infection, bleeding, damage to surrounding structures and increased pain were discussed. Alternative therapies were also reviewed. Patients questions were answered and they agreed to proceed. Informed consent was obtained. Allergies and medication list was reviewed. The patient was brought to the procedure room and placed in prone position. Immediately prior to starting the procedure, a ``time out was conducted with the staff and the patient where the patient was identified, proposed procedure w as verified, consent was reviewed and the proper site for the planned procedure was identified. Patient was not given any intravenous sedation and constant verbal contact was maintained throughout the procedure. On examination, no signs of skin breakdown or infection were noted at the injection site. The site was cleansed with ChloraPrep. After the application of either chloraprep, duraprep, and/or betadine (depending on patient's allergy status), three minutes time elapsed prior to the start of the procedure to reduce risk of fire. Palpation over the site produced patients typical pain. Using an 1.5 inch 25-gauge needle, the above muscles were injected in similar fashion after negative aspiration for blood with 1 mL of a combination of 7 mL of 0.5% ropivacaine-MPF containing 40 mg of Kenalog (1 ml) and 60 mg of ketorolac (2 ml) without complication. Needle was withdrawn and hemostasis noted. Band-Aid was applied where needed. Patient tolerated the procedure uneventfully without complications. Patient was discharged home with standard discharge instructions. Admission and Anticipated Discharge Date Admission Date: October 08, 2023 [address] Mrs. Cherry is seen at bedside reporting that her abdominal pain is slightly improved compared to yesterday. She did begin eating normal diet last evening without complication. Patient denies any increased pain with her dietary intake. She did undergo EGD which revealed gastritis without evidence of ul ceration. MRI of the abdomen was also completed which revealed focal atrophy of the liver without evidence of abscess or bile duct injury. Her pain remains similar location and characteristic as prior. She does believe baclofen 5 mg 3 times daily has been slightly beneficial at diminishing the severity of her pain. She is tolerating the medication without notable side effects. Patient has no further concerns or complaints and is agreeable to pursue the abdominal wall trigger point injections planned for today's visit. Plan of care discussed with Dr. Laila Garcia. Physical Exam Physical Exam: General: Patient was sleeping but easily arousable. Patient in no acute distress. Speech and thought process appropriate. Mood and affect appropriate. Cognition intact. Abdomen: Soft and nondistended. No organomegaly. Bowel sounds active. Multiple well-healed abdominal wall incisions with a large midline incision extending from the midepigastric through the suprapubic location. Patient remains generally tender in the mid abdomen bilaterally without rebound or guarding. There is no suprapubic tenderness. Minimal midepigastric tenderness appreciated. Increased abdominal pain was appreciated with resisted sit up maneuvering and hip flexion. Neurologic: Cranial nerves grossly intact. Ambulatory function normal.
--- NOTE | 2023-10-09 14:48 | Discharge Summary ---
Discharge Summary Date of Service October 09, 2023 Notes For Next Care Provider Needs outpatient pain management follow-up Needs outpatient GI follow-up and repeat MRI of the liver in 6 months May need further IV iron and IM B12 injections as an outpatient Needs repeat CBC, B12, iron studies, and TSH in 4 weeks Medication Changes From Visit Added baclofen 10 mg p.o. twice daily Added vitamin B12 1000 mcg p.o. daily Added ferrous sulfate 325 mg p.o. daily Increased levothyroxine to 175 mcg daily Added metoclopramide 10 mg p.o. every 6 hours as needed migraine headache to be taken with Benadryl 25 mg p.o. every 6 hours as needed migraine headache Discontinued Nexium and started Protonix 40 Mg p.o. twice daily Admission HPI Per Admitting Provider Pt is a 53 yo female with PMH of HTN, depression/anxiety, COPD, DVT/mesenteric ischemia, TX, and TIA presenting due to abdominal pain. Pt most recently had a SBO 05/2023 requiring ex lap and lysis of adhesions. Pt explains that she has been having abdominal pain since her last abdominal surgery in 05/2023. She notes that her ex lap incision has not completely healed and has been draining pus. She has completed two courses of doxy prescribed by her surgery team for this- her last dose of the second course was yesterday. Her abdominal pain has been progressively worsening over the last few weeks. Over the past few days, she has also been intermittently vomiting. She denies fevers and SOB but does endorse feeling cold and occasional chest pain. She states she was told that she may have a chronic pain due to her abdominal nerves being cut so many times but she has resisted being put on chronic pain medications. She manages her pain at home with advil. She endorses a complicated history of abdominal surgeries stemming from a blood clot that she states dropped from her heart and into her bowels leaving large portions of her bowels necrotic. She has had much of her colon/small bowel resec vinod due to this. She had an ostomy for a number of years which was reversed ~4 yrs ago. She also has had her gallbladder, appendix, uterus, and ovaries removed. Overall, she has had at least 25 abdominal surgeries including multiple bowel obstructions. She does have a hx of an intra-abdominal infection which required surgical drainage. In the ER, pt was given vanco x1, flagyl x1, ceftriaxone x1, 1L of NS, zofran 4 mg x1, and dilaudid 0.5mg x3. 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 Pt most recently had a SBO 05/2023 requiring ex lap and lysis of adhesions. She has had abdominal pain ever since mostly in the mid abdomen but goes down into the right greater than left quadrants She has been taking NSAIDs frequently for 4 months. No melena but is anemic. No nausea or vomiting. 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 CT abdomen/pelvis here with 27 x 20 mm hypodense collection in posterior aspect of liver concerning for possible abscess- no bowel obstruction CBC negative for leukocytosis, CMP WNL, CRP neg, procal neg, lipase neg, and she is afebrile She was treated with empiric antibiotics to include ceftriaxone, Flagyl, and vancomycin but these were discontinued after blood cultures remain negative for 48 hours and liver MRI proved that she did not have a liver abscess MRI of the liver here shows that the previously reported hypodense area along posterior margin of the right lobe of the liver correlates with the branching appearance contiguous with the right intrahepatic biliary radicles communicating with the common bile duct and suggestion of a branch of the portal vein serving this area and a potential small caliber right hepatic vein extending along the superior medial aspect of this region findings most consistent with focal atrophy of the posterior right lobe of the liver rather than loculated fluid collection or biliary injury. Attempts were made to obtain outside CT scans from [facility] and [facility] but unsuccessful by the time of discharge Consult surgery for abdominal pain in the setting of numerous abdominal surgeries-no surgical intervention Consult GI for EGD for peptic ulcer disease as cause of upper abdominal pain and anemia-EGD 10/07 shows gastritis but no ulcer. Bxs taken to r/o celiac. Nexium switch to Protonix twice daily and advised to remain off of NSAIDs or use very sparingly Follow blood cultures-remained NGTD at the time of discharge Very few doses of IV Dilaudid were given as needed for pain Seen by pain management and started on baclofen 5 Mg p.o. twice daily which started to help and was given abdominal wall trigger point injections which were already starting to improve her pain She can take baclofen 10 mg p.o. twice daily after discharge for abdominal muscle spasms Follow-up liver MRI in 6 months and follow-up with GI Consider switching Lexapro to Cymbalta for better neuropathic pain management as an outpatient (2) Migraine: Ongoing most days for the last 3 weeks with a history of migraines in her teenage years. With associated phonophobia and photophobia, nausea, severe right-sided headache Much improved/resolved with abortive therapy with IV Reglan and Benadryl together-will give oral supply of Reglan and Benadryl for home use abortive therapy Ibuprofen as needed sparingly Checked brain MRI given severe headache persistent for 3 weeks--> negative (3) Liver lesion: As noted above, likely due to atrophy of the liver Follow-up imaging in 6 months (4) Anemia: hgb low at 9.6, MCV microcytic Fe studies show severe iron deficiency with transferrin saturation of only 6% and ferritin severely low at 4 B12 also severely low at 88 Celiac biopsies negative from EGD likely from malabsorption TSH also quite elevated for months also likely from malabsorption of her levothyroxine-increased LT4 dose 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 Gave 1 dose of Venofer 300 mg x 1 and B12 1000 mcg IM x 1 Continue p.o. ferrous sulfate and p.o. B12 after discharge and follow-up with PCP May need further parenteral iron and B12 Follow-up B12, CBC, iron levels, and TSH in 1 month with PCP (5) COPD with emphysema: - no acute exacerbation - continue home inhalers (6) Hypertension: BPs are controlled Continue home metoprolol 50 mg daily (7) Hypothyroidism: TSH was 45, and her levothyroxine as an outpatient was increased to 150 mcg daily a couple of months ago TSH checked again here-still elevated but improved at 25 Increased levothyroxine 175 mcg daily-likely has difficulty with absorption given short gut syndrome Check TSH in 4 weeks (8) Hyperlipidemia: continue home atorvastatin 40 mg daily (9) CAD (coronary artery disease): With a history of remote coronary revascularization with PCI/stenting in 2013 as per cardiology notes She is not on aspirin or an antiplatelet as per her medication list - previous cardiology notes show that she was on aspirin-need to ensure that she is taking daily aspirin Continue metoprolol and atorvastatin No acute issues Follow-up with PCP and/or cardiology as an outpatient (10) Anxiety: No acute issues Continue home buspirone and escitalopram, with consideration to switch to Cymbalta for neuropathic pain as an outpatient Plan DVT prophylaxis- SCDs, she ambulated quite frequently during her stay Disposition-discharge home, much improved Discharge Exam Constitutional WD/WN, vitals as above Neck trachea midline, no thyromegaly Respiratory normal respiratory effort, lungs clear to auscultation Cardiovascular RRR, no murmur, no edema Chest (Breasts) Chest: normal inspection of chest Gastrointestinal (Abdomen) Inspection/Auscultation: normal bowel sounds; + abdomen abnormal to inspection (multiple scars all over abdomen including large midline laparotomy scar) and abdomen not distended Percussion/Palpation: + abdomen tender (diffusely with minimal palpation,moreso on right side) and abdomen soft; no guarding Musculoskeletal Extremities: extremities normal to inspection; no cyanosis and no clubbing Skin no rashes, warm and dry Neurologic moves all extremities and awake; no focal motor deficits Psychiatric A+Ox3, euthymic affect Lymphatic no lymphedema Updated Medication List Medication Instructions Recorded Confirmed Type albuterol sulfate 90 mcg/actuation 1 inh inhalation QID PRN ASTHMA, 05/08/23 10/06/23 Rx aerosol inhaler (ProAir HFA) COPD #6.7 grams atorvastatin 40 mg tablet 40 mg PO QPM #90 tabs 05/08/23 10/06/23 Rx budesonide-formoterol HFA 160 2 puff inhalation BID #3 Inhalers 05/08/23 10/06/23 Rx mcg-4.5 mcg/actuation aerosol inhaler (Symbicort) escitalopram oxalate 10 mg tablet 10 mg PO DAILY #90 tabs 05/08/23 10/06/23 Rx loperamide 2 mg capsule 2 mg PO Q6H PRN loose stool #270 05/08/23 10/06/23 Rx caps metoprolol succinate 50 mg 50 mg PO QPM #90 tabs 05/08/23 10/06/23 Rx tablet,extended release 24 hr nitroglycerin 0.4 mg sublingual 0.4 mg sublingual Q5M PRN chest 05/08/23 10/06/23 Rx tablet pain #25 tabs tiotropium bromide 2.5 2 puff inhalation DAILY #3 Inhalers 05/08/23 10/06/23 Rx mcg/actuation mist for inhalation (Spiriva Respimat) buspirone 15 mg tablet 15 mg PO Q6H PRN anxiety #90 tabs 08/22/23 10/06/23 Rx potassium gluconate 500 mg (83 mg) 0 mg PO DAILY 10/06/23 10/06/23 History tablet baclofen 10 mg tablet 10 mg PO BID #60 tabs 10/09/23 Rx cyanocobalamin (vitamin B-12) 1,000 mcg PO DAILY #30 tabs 10/09/23 Rx 1,000 mcg tablet diphenhydramine HCl 25 mg capsule 25 mg PO Q6H PRN migraine 10/09/23 Rx (Benadryl) headache,take with metaclopramide #20 caps ferrous sulfate 325 mg (65 mg 325 mg PO DAILY #30 tabs 10/09/23 Rx iron) tablet levothyroxine 175 mcg tablet 175 mcg PO DAILYBB #30 tabs 10/09/23 Rx (Synthroid) metoclopramide HCl 10 mg tablet 10 mg PO Q6H PRN migraine 10/09/23 Rx headache,take with benadyl #20 tabs pantoprazole 40 mg tablet,delayed 40 mg PO BID #60 tabs 10/09/23 Rx release (Protonix) Hospital Stay Data Consultations 10/06/23 20:50 ED Decision to Admit Stat 10/07/23 09:43 Consult General Surgery Routine 10/07/23 12:49 HIM [Consult Health Information Management] Routine 10/07/23 12:51 HIM [Consult Health Information Management] Routine 10/07/23 13:33 Consult Gastroenterology Routine Consult Pain Management Routine Procedures Performed Operation Date: 10/08/23 16:30 Actual Procedures p EGD Biopsy Cytology - [place] [facility] Case, DO Diagnostic Imagining Performed 10/06/23 18:08 CT abd pelvis IV con only Stat 10/07/23 15:09 MRI Brain [MR brain wo/w con] Routine 10/08/23 11:38 MR abdomen wo/w con Routine Pending Results Patient Have Any Pending Studies at Discharge: Yes (small intestine biopsy) Discharge Instructions Given to Patient (Per Discharging Provider) You were admitted with abdominal pain and treated with injections which helped. You can also take baclofen as needed for muscle spasm. Follow up with pain management in their office after discharge. Initially, we thought you had an abscess or collection of pus in your liver but the MRI showed this was just a spot from shrinkage of the liver or "atrophy." This can be followed up with a repeat MRI of the liver in 6 months just to make sure nothing is changing. Follow up with the GI doctor for this. You had inflammation in your stomach called gastritis and should stay on Protonix as an antacid for this. You had biopsies to look for celiac disease which were pending at the time of discharge. The gastritis can be from acid reflux but also from taking ibuprofen-please try to limit the amount of ibuprofen or other NSAIDs that you take. You were also found to be anemic from iron and vitamin B12 deficiencies and these were replaced. You should continue on iron and B12 pills which can be bought over the counter. Please have your PCP follow up on these levels and your blood count in a month. Your thyroid function is still quite low and this is also likely from poor absorption of your thyroid medication. Your dose was increased to 175mcg of levothyroxine and you should also have your thyroid blood work repeated in one month. Total Time Total Time Spent Total Time Spent (In Minutes): 60 minutes Total Time Includes: Examination of the Patient, Discharge Planning and Medication Reconciliation Coding Level of Care Code 99692 INP/OBS DISCH >30 MIN Diagnoses Abdominal pain R10.84 Abdominal location: generalized Migraine G43.909 Liver lesion K76.9 Anemia D64.9 COPD with emphysema J43.9 Hypertension I10 Hypothyroidism E03.9 Hyperlipidemia E78.5 CAD (coronary artery disease) I25.10 Anxiety F41.9
[2023-10-10] MEDS ORDERED: CYANOCOBALAMIN (B-12) 500 MCG TABLET PO SCH (09:00)
--- NOTE | 2023-10-14 21:20 | Billing Data ---
Date of Service October 14, 2023 Coding Level of Care Code 66626 INT INP/OBS CARE
== END 2023-10-09 16:09 | disposition home or self-care (01) | DRG 556 ==
LOC: 3N 17:55 → ED 17:55 → SUATTDRO 21:36 → 3N 22:11